=== PATIENT | female | born 1960 | race Caucasian/White ===

== ENCOUNTER 2022-11-11 11:18 | Inpatient (IN) | payer MEDICAID, SELFPAY ==
--- NOTE | 2022-11-11 11:19 | W.ED.PSYCHS ---
HPI - Psych General: Chief Complaint: Psychiatric Symptoms Stated Complaint: 96 hour hold Time Seen by Provider: 11/11/22 11:19 History of Present Illness: Ms. Heart is a 62-year-old lady with reported history of PTSD and depression not on medications presenting to the emergency department for psychiatric evaluation. She is under a court ordered 96-hour hold out of [facility]. The patient reports being fairly recent to the area with history of living in [facility] where she was hospitalized in the past for depression. She is not on psychiatric medications. Apparently she has had neighbors called the police on her multiple times that she has been yelling in her house and reports that she feels demonic spirits which she prays against. She does not feel that this is out of the ordinary in any way. Otherwise denies changes in health. No other specific changes in health, exacerbating, or alleviating factors identified. History of same: Yes Context: not taking psychiatric medications Review of Systems General: Reports: 10 or more systems reviewed and unremarkable except in HPI and below PFSH ED PFSH: Medical History (Updated 11/18/22 @ 00:00 by VINCENZO Chauhan) Depression Psychiatric symptoms PTSD (post-traumatic stress disorder) Thyroid disorder Surgical History (Updated 11/11/22 @ 11:37 by Mir Carreno MD) No significant past surgical history Physical Exam Const: COMMON NORMALS: alert GENERAL APPEARANCE: cooperative and well developed HENMT: COMMON NORMALS: normocephalic and atraumatic HEAD & SCALP: normocephalic and atraumatic Eye: COMMON NORMALS: conjunctivae normal CONJUNCTIVA: Yes conjunctivae normal SCLERA: sclerae normal Neck/C-Spine: COMMON NORMALS: supple GENERAL: Yes trachea midline Resp: COMMON NORMALS: clear to auscultation bilaterally EFFORT & INSPECTION: Yes able to speak in complete sentences AUSCULTATION: clear to auscultation bilaterally Cardio: COMMON NORMALS: regular rate and regular rhythm RATE: regular rate RHYTHM: regular rhythm GI: COMMON NORMALS: Soft to palpation PALPATION: Yes Soft to palpation and No Tenderness to palpation present (GI) PERCUSSION: normal to percussion Extremity: GENERAL: Yes normal exam except as noted and No edema Neuro: COMMON NORMALS: moves all extremities SENSORIUM/ORIENTATION: Yes alert and No Orientation impaired Psych: MOOD & AFFECT: Yes Labile affect present INSIGHT: Fair insight present (Psych) JUDGEMENT: Poor judgement present (Psych) Course Vital Signs: Vital signs: Vital Signs Temperature 97.8 F 11/17/22 12:09 Pulse Rate 85 11/17/22 12:09 Respiratory Rate 16 11/17/22 12:09 Blood Pressure 116/69 11/17/22 12:09 Pulse Oximetry 98 11/17/22 12:09 Oxygen Delivery Me thod 11/17/22 06:00 MDM - Psych Medical Decision Making 62-year-old lady presenting to the emergency department for mental health evaluation placed on 96-hour hold prior to arrival. Patient denies any concerns. Labs with perhaps mild evidence of dehydration, patient can adequately orally rehydrate, salicylate level mildly elevated and repeat timed. No reported history of suicide attempt or salicylate ingestion. Based on ED evaluation at this point there is no obvious condition that would preclude the patient from inpatient management psychiatric concerns/symptoms. Most likely etiology of patient's symptoms is unclear, likely related to underlying psychiatric disorder. Discussed with psychiatry service who was agreeable to admit patient. Medical Records I reviewed the patient's medical records. Lab Data I reviewed the patient's lab results. 11/11/22 12:01 11/11/22 12:01 Radiology Impressions Shoulder X-Ray 11/13/22 08:27 Impression: Negative right shoulder. Laboratory Results WBC 11.2 10^3/uL (4.0-10.0) H 11/11/22 12:01 RBC 4.54 10^6/uL (4.1-5.3) 11/11/22 12:01 Hgb 12.6 g/dL (11.5-15.3) 11/11/22 12:01 Hct 40.7 % (37.0-47.0) 11/11/22 12:01 MCV 89.6 fl (81-99) 11/11/22 12:01 MCH 27.8 pg (28.0-34.0) L 11/11/22 12:01 MCHC 31.0 g/dL (30.0-36.0) 11/11/22 12:01 RDW 17.7 % (12.1-15.1) H 11/11/22 12:01 Plt Count 367 10^3/cmm (130-400) 11/11/22 12:01 MPV 9.5 fL (7.4-10.4) 11/11/22 12:01 Neut % (Auto) 63.0 % 11/11/22 12:01 Lymph % (Auto) 29.1 % 11/11/22 12:01 Boone % (Auto) 5.3 % 11/11/22 12:01 Eos % (Auto) 0.9 % 11/11/22 12:01 Baso % (Auto) 1.0 % 11/11/22 12:01 Neut # (Auto) 7.08 10^3/uL (1.8-7.7) 11/11/22 12:01 Lymph # (Auto) 3.3 10^3/uL (0.8-4.8) 11/11/22 12:01 Boone # (Auto) 0.6 10^3/uL (0.2-0.9) 11/11/22 12:01 Eos # (Auto) 0.1 10^3/uL (0.0-0.8) 11/11/22 12:01 Baso # (Auto) 0.1 10^3/uL (0.0-0.1) 11/11/22 12:01 Nucleated RBC % (auto) 0 % 11/11/22 12: Nucleated RBCs # 0.0 /100WBC 11/11/22 12:01 Sodium 143 mmol/L (136-145) 11/11/22 12:01 Potassium 4.3 mmol/L (3.5-5.1) 11/11/22 12:01 Chloride 106 mmol/L (98-107) 11/11/22 12:01 Carbon Dioxide 19 mmol/L (22-29) L 11/11/22 12:01 Anion Gap 22.3 (5-19) H 11/11/22 12:01 BUN 26 mg/dL (8-23) H 11/11/22 12:01 Creatinine 0.8 mg/dL (0.5-0.9) 11/11/22 12:01 GFR Calculation 73.2 mL/min (90-130) L 11/11/22 12:01 Glucose 121 mg/dL (65-115) H 11/11/22 12:01 Calculated Osmolality 302 mOsm/kg (285-295) H 11/11/22 12:01 Calcium 9.4 mg/dL (8.5-10.5) 11/11/22 12:01 Total Bilirubin 0.2 mg/dL (0.15-1.2) 11/11/22 12:01 AST 18 U/L (0-32) 11/11/22 12:01 ALT 15 U/L (0-33) 11/11/22 12:01 Alkaline Phosphatase 63 U/L (35-105) 11/11/22 12:01 Total Protein 7.4 g/dL (6.6-8.7) 11/11/22 12:01 Albumin 4.7 g/dL (3.5-5.2) 11/11/22 12:01 Globulin 2.7 g/dL (1.3-4.6) 11/11/22 12:01 TSH 1.44 uIU/mL (0.27-4.20) 11/11/22 12:01 Urine Color Light yellow (Yellow) 11/11/22 12:10 Urine Appearance Hazy (CLEAR) A 11/11/22 12:10 Urine pH 5 (5-7) 11/11/22 12:10 Ur Specific Goodrich 1.015 (1.005-1.030) 11/11/22 12:10 Urine Protein Neg (Negative) 11/11/22 12:10 Urine Glucose (UA) Norm (Normal) 11/11/22 12:10 Urine Ketones Negative (Negative) 11/11/22 12:10 Urine Blood Neg (Negative) 11/11/22 12:10 Urine Nitrate Negative (Negative) 11/11/22 12:10 Urine Bilirubin Neg (Negative) 11/11/22 12:10 Urine Urobilinogen Neg mg/dL (Negative) 11/11/22 12:10 Ur Leukocyte Esterase Negative (Negative) 11/11/22 12:10 Urine RBC Rare /hpf (0-2) 11/11/22 12:10 Urine WBC None /hpf (0-5) 11/11/22 12:10 Ur Squamous Epith Cells Rare /hpf (0-5) 11/11/22 12:10 Amorphous Sediment Not Reportable 11/11/22 12:10 Urine Bacteria None /hpf (NONE) 11/11/22 12:10 Salicylates 34.3 mg/dL (3-10) H 11/11/22 12:01 Urine Opiates Screen Negative ng/mL (Negative) 11/11/22 12:10 Acetaminophen < 5.0 ug/mL (10-30) L 11/11/22 12:01 Ur Barbiturates Screen Negative ng/mL (Negative) 11/11/22 12:10 Ur Phencyclidine Scrn Negative ng/mL (Negative) 11/11/22 12:10 Ur Amphetamines Screen Negative ng/mL (Negative) 11/11/22 12:10 U Benzodiazepines Scrn Negative ng/mL (Negative) 11/11/22 12:10 Urine Cocaine Screen Negative ng/mL (Negative) 11/11/22 12:10 U Marijuana (THC) Screen Negative ng/mL (Negative) 11/11/22 12:10 Ethyl Alcohol < 10 mg/dL (0-10) 11/11/22 12:01 Discharge Plan Discharge Patient Disposition: Admitted As Inpatient Admit Provider: Kilo Villarreal Clinical Impression: Psychiatric symptoms, Delusions Condition: Stable Discharge Diet: Usual diet Discharge Activity: Resume usual activity Coding Level of Care Code ED Cloth Examiner Hand for Bakari Rm
[2022-11-11 11:24] VITALS: PULSE 98; RESP 18; TEMP 36.8; O2SAT 98
--- NOTE | 2022-11-11 11:30 | PC.NURSE ---
@1132 96 hour hold rights reviewed with patient and copy left and bedside. No further questions by patient, and patient verbalized understanding.
--- NOTE | 2022-11-11 11:42 | PC.NURSE ---
ATTEMPTED TO DEESCALATE PT AND REMOVE PERSONAL BELONGINGS FROM ROOM. PT REFUSED STATING, I HAVE ARTHRITIS I NEED THIS JACKET TO COVER IT UP . I OFFERED PT BLANKETS PT REFUSED. PT OFFERED TIME TO EXPRESS HERSELF. PT CONTINUES TO SPEAK AT A FAST RATE.
--- NOTE | 2022-11-11 11:48 | PC.NURSE ---
CONTINUING TO ATTEMPT TO DEESCALATE AND OBTAIN PT BELONGINGS. PT IS ESCALATING INCREASING HER SPEECH RATE AND TONE. STAFF PRESENT INCREASED.
[2022-11-11] MEDS: LORazepam 2 mg/mL INJ 1 mL 1 MG IM (11:54)
[2022-11-11] MEDS: haloperidol inj 5 mg/mL INJ 1 mL 2 MG IM (11:54)
--- NOTE | 2022-11-11 11:54 | PC.NURSE ---
PT IN MANUAL HOLD FOR REMOVAL OF PERSONAL ITEMS AND FOR IM INJECTIONS DT PT CONTINUING TO NOT FOLLOW VERBAL COMMANDS. ASSISTED BY TECH SECURITY AND RN. VERBAL ORDER OBTAINED PRIOR TO MANUAL HOLD BY DR. JEWELL.
[2022-11-11 12:20] LABS: Basophils # 0.1 10^3/uL (0.0-0.1); Eosinophils # 0.1 10^3/uL (0.0-0.8); Eosinophils % 0.9 %; Hematocrit 40.7 % (37.0-47.0); Hemoglobin 12.6 g/dL (11.5-15.3); Lymphocytes # 3.3 10^3/uL (0.8-4.8); Lymphocytes % 29.1 %; Mean Corpuscular Hemoglobin 27.8 pg (28.0-34.0); Mean Corpuscular Volume 89.6 fl (81-99); Mean Platelet Volume 9.5 fL (7.4-10.4); Monocytes # 0.6 10^3/uL (0.2-0.9); Monocytes % 5.3 %; Neutrophils # 7.08 10^3/uL (1.8-7.7); Nucleated Red Blood Cells % 0 %; Platelet Count 367 10^3/cmm (130-400); Red Blood Count 4.54 10^6/uL (4.1-5.3); Red Cell Distribution Width 17.7 % (12.1-15.1); White Blood Count 11.2 10^3/uL (4.0-10.0)
[2022-11-11 12:44] LABS: Add Urine Microscopic? YES; Bilirubin Urine Neg (Negative); Blood Urine Neg (Negative); Glucose Urine UA Norm (Normal); Ketones Urine Negative (Negative); Leukocyte Esterase Urine Negative (Negative); Nitrate Urine Negative (Negative); Protein Urine Neg (Negative); Specific Gravity, Urine 1.015 (1.005-1.030); Urine Appearance Hazy (CLEAR); Urine Color Light yellow (Yellow); Urobilinogen Urine Neg (Negative); pH Urine 5 (5-7)
[2022-11-11 12:49] LABS: Alanine Aminotransferase 15 U/L (0-33); Albumin Level 4.7 g/dL (3.5-5.2); Alkaline Phosphatase 63 U/L (35-105); Anion Gap 22.3 (5-19); Aspartate Amino Transferase 18 U/L (0-32); Blood Urea Nitrogen 26 mg/dL (8-23); Calcium 9.4 mg/dL (8.5-10.5); Carbon Dioxide 19 mmol/L (22-29); Chloride 106 mmol/L (98-107); Globulin 2.7 g/dL (1.3-4.6); Glomerular Filtration Rate 73.2 mL/min (90-130); Glucose 121 mg/dL (65-115); Osmolality Calculated 302 mOsm/kg (285-295); Potassium 4.3 mmol/L (3.5-5.1); Salicylate 34.3 mg/dL (3-10); Sodium 143 mmol/L (136-145); Thyroid Stimulating Hormone 1.44 uIU/mL (0.27-4.20); Total Bilirubin 0.2 mg/dL (0.15-1.2); Total Protein 7.4 g/dL (6.6-8.7)
[2022-11-11 12:50] LABS: Add Urine Culture? No; RBC Urine RARE /hpf (0-2); Squamous Epithelial Cell Urine RARE /hpf (0-5)
[2022-11-11 12:52] LABS: Amphetamines Screen Urine Negative (Negative); Barbiturates Screen Urine Negative (Negative); Benzodiazepines Screen Urine Negative (Negative); Cocaine Screen Urine Negative (Negative); Opiate Screen Urine Negative (Negative); PCP Screen Urine Negative (Negative); THC Screen Urine Negative (Negative)
[2022-11-11 12:52] LABS: Acetaminophen < 5.0 ug/mL (10-30); Alcohol Level < 10 mg/dL (0-10)
--- NOTE | 2022-11-11 13:09 | PC.NURSE ---
PT PROVIDED WITH FOOD AND COFFEE PER PT REQUEST AND DR. FANTA ROTH
--- NOTE | 2022-11-11 14:43 | PC.NURSE ---
report given to lupe millard.
[2022-11-11 15:38] VITALS: BP 146/76; PULSE 92; RESP 20; TEMP 36.8; O2SAT 97
[2022-11-11 17:15] LABS: Salicylate 24.2 mg/dL (3-10)
[2022-11-11] MEDS: ibuprofen 600 mg Tablet PO (20:22)
[2022-11-11 20:43] VITALS: BP 149/73; PULSE 95; RESP 17; TEMP 36.8; O2SAT 96
[2022-11-12] MEDS: ibuprofen 600 mg Tablet PO ×3 (05:03→21:23)
[2022-11-12 06:00] VITALS: BP 174/92; PULSE 86; RESP 18; TEMP 36.6; O2SAT 97
[2022-11-12] MEDS: nicotine 4 mg lozenge MUCOUS MEM ×4 (06:39→19:35)
[2022-11-12] MEDS: aspirin 81 mg EC Tablet PO (09:57)
[2022-11-12] MEDS: magnesium hydroxide 30 mL UDC PO (09:58)
--- NOTE | 2022-11-12 10:36 | PC.NURSE ---
Pt was encouraged to please keep her ID bracelet on. Pt cussed at staff and then stomped off. Nursing staff will encourage later.
[2022-11-12 14:00] VITALS: RESP 18
--- NOTE | 2022-11-12 15:48 | PC.NURSE ---
Pt became upset with nursing staff, about topical pain cream that the doctor was to order. Pt stomped off and slammed her room door and also the bathroom door inside her room, cussing at staff. Staff gave pt some time to cool off and then politely educated the pt about keeping the door cracked at all times.
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
[2022-11-12 20:31] VITALS: BP 170/83; PULSE 84; RESP 17; TEMP 36.9; O2SAT 95
[2022-11-12] MEDS: hyDROXYzine 25 mg Capsule 50 MG PO (21:23)
[2022-11-13] MEDS: ibuprofen 600 mg Tablet PO ×4 (03:47→21:58)
[2022-11-13 06:00] VITALS: BP 162/88; PULSE 75; RESP 16; TEMP 36.6; O2SAT 98
--- NOTE | 2022-11-13 08:27 | XR_ITS ---
WS: [id number] Right shoulder, 3 views, 11/13/2022 Clinical Data: Right shoulder pain Comparison: None. Findings: No fractures or dislocations are seen. The AC joint is normal. The adjacent right clavicle, right sca pula and ribs are normal. The soft tissues are unremarkable. XR/XR shoulder RT min 2V* [id number] Impression: Negative right shoulder.
[2022-11-13] MEDS: venlafaxine ER (24HR) 75 mg Capsule PO (09:37)
[2022-11-13] MEDS: nicotine 4 mg lozenge MUCOUS MEM ×3 (09:37→21:58)
[2022-11-13 14:00] VITALS: BP 171/98; PULSE 83; RESP 20; TEMP 36.8; O2SAT 96
--- NOTE | 2022-11-13 15:36 | W.PM.NPUPNS ---
Subjective NPU Subjective: Patient is a 62-year-old white female with a history of schizoaffective disorder admitted with increased bizarre behavior at her recent living situation with an extended history of psychiatric issues. The patient had reported having been off of her psychotropic medicines for 3 years and reported that she was in a significant amount of pain in her shoulder and stated that she needed further help with her pain at this time. The patient had an x-ray completed of her right shoulder today. Patient denied any suicidal thoughts at this time. She had minimized any of the bizarre behavior that was reported by the landlord of her home living situation including apparently throwing a appliance out the window and complaining of being in a hi with Satan. Mental Status Exam MSE Comments: The patient is a short white female who appeared her stated age she appeared mildly agitated today and defensive. There is no evidence of psychomotor retardation. Her speech was somewhat loud but normal in regards to rate and prosody. There was no evidence of any abnormal involuntary motor movements tics or tremors appreciated. Her mood was described as upset. Her affect was irritable and mood-congruent. She did appear guarded and at times paranoid. She did not appear to be responding to internal stimuli. She had reported distrust of others and denied any of the problems that landed her in here. She minimized any suicidal or homicidal ideation. Her insight appeared impaired. Her judgment was poor. Her impulse control appeared limited at this time. Her recent and remote memory appeared grossly intact. Vitals/I&O/Wt Last Vital Signs Temp 97.9 F 11/13/22 06:00 Pulse 75 11/13/22 06:00 Resp 16 11/13/22 06:00 BP 162/88 11/13/22 06:00 Pulse Ox 98 11/13/22 06:00 O2 Del Method 11/13/22 06:00 Data NPU 11/11/22 12:01 11/11/22 12:01 A&P Assessment and plan (1) Major depressive disorder, recurrent: (2) PTSD (post-traumatic stress disorder): (3) Delusions: Plan Rossana is a 62-year-old white female with a reported history of PTSD and schizoaffective disorder: depressed mood admitted while reporting being in a hi with demons leading to involuntary hospitalization at [facility] with recent noncompliance with an antipsychotic and antidepressant for reportedly several years. Patient will continue to require acute inpatient hospitalization and close evaluation. #1. Initiate individual group and milieu therapy. #2. Therapeutic observation 15-minute checks on the unit #3. Continue Effexor 75 mg extended release once a day to target depression, add Invega 3mg to target psychosis today. Involuntary Hold Information 96 Hour Hold: 96 Hour Involuntary Admission: Yes 96 Hour Hold Ending Date: 11/17/22 96 Hour Hold Ending Time: 11:18 Attestations NPU Medical Necessity Statement*: Inpatient hospitalization is medically necessary and the clinically appropriate intervention at this time. We will monitor medications and make changes as indicated. Patient will be in the hospital for over 2 midnights. Her likely length of stay is 3 to 6 days. Coding Level of Care Code Acute Code for g Fwd Diagnoses Major depressive disorder, recurrent F33.9 PTSD (post-traumatic stress disorder) F43.10 Delusions F22
--- NOTE | 2022-11-13 15:45 | PC.NURSE ---
Blood pressure 171/98; denies n/v,vertigo and dizziness. C/O right shoulder pain; rated 7/10; IBU 600mg given as ordered. MD notified; no new order received.
[2022-11-13 21:25] VITALS: BP 151/73; PULSE 85; RESP 20; TEMP 36.5; O2SAT 97
[2022-11-13] MEDS: magnesium hydroxide 30 mL UDC PO (21:58)
[2022-11-14 06:00] VITALS: BP 181/84; PULSE 85; RESP 17; TEMP 36.8; O2SAT 96
[2022-11-14] MEDS: ibuprofen 600 mg Tablet PO ×2 (06:16→12:44)
[2022-11-14] MEDS: nicotine 4 mg lozenge MUCOUS MEM ×3 (06:16→13:22)
[2022-11-14] MEDS: venlafaxine ER (24HR) 75 mg Capsule PO (08:29)
--- NOTE | 2022-11-14 13:10 | W.PM.NPUPNS ---
Subjective NPU Subjective: Patient is a 62-year-old white female with a history of schizoaffective disorder admitted with increased bizarre behavior at her recent living situation with an extended history of psychiatric issues. The patient had reported continued special relationship with God and stated that she was a spiritual person. She had a door in her room with various words including [employer] and stated that she was a believer in saving herself. She reported no side effects from her Invega at this time. She reported no suicidal thoughts. She had reported that she had been feeling somewhat better with the initiation of her Effexor. She reported no feelings of hopelessness. She reported that she probably needed to follow-up with a psychiatrist again as it had been several years without having psychiatric despite having a chronic mental illness for greater than 30 years. She continued to report that she had done nothing wrong in her living situation and denied having any disruptive behavior and her home that had led to her eviction. She had reported significant right shoulder pain with an inability to rotate her shoulder with particular pain on motion. She had requested pain medication to manage it today as she stated that the ibuprofen had not been helpful. She had reported previously having pain relief for using Ryegate. She has no history currently of substance abuse. Mental Status Exam MSE Comments: The patient is a short white female who appeared her stated age she appeared mildly agitated and in some physical pain. There is no evidence of psychomotor retardation. Her speech was normal in volume, rate and prosody. There was no evidence of any abnormal involuntary motor movements tics or tremors appreciated. Her mood was described as better. Her affect remained irritable and mood incongruent. She did appear guarded and at times paranoid. She did not appear to be responding to internal stimuli. She had reported distrust of others and denied any of the problems that led to admission here. There was an element of hyperreligiosity noted. She minimized any suicidal or homicidal ideation. Her insight appeared impaired. Her judgment was poor. Her impulse control appeared limited at this time. Her recent and remote memory appeared grossly intact. Vitals/I&O/Wt Last Vital Signs Temp 98.3 F 11/14/22 06:00 Pulse 85 11/14/22 06:00 Resp 17 11/14/22 06:00 BP 181/84 11/14/22 06:00 Pulse Ox 96 11/14/22 06:00 O2 Del Method 11/14/22 06:00 11/13/22 11/14/22 11/14/22 22:59 06:59 14:59 Intake Total 500 / 500 Balance 500 / 500 Data NPU 11/11/22 12:01 11/11/22 12:01 A&P Assessment and plan (1) Major depressive disorder, recurrent: (2) PTSD (post-traumatic stress disorder): (3) Delusions: Plan Rossana is a 62-year-old white female with a reported history of PTSD and schizoaffective disorder: depressed mood admitted while reporting being in a hi with [employer] leading to involuntary hospitalization at [facility] with recent noncompliance with an antipsychotic and antidepressant for reportedly several years. Patient will continue to require acute inpatient hospitalization and close evaluation. #1. Initiate individual group and milieu therapy. #2. Therapeutic observation 15-minute checks on the unit #3. Increase Effexor 150 mg extended release once a day to target depression, increase Invega 6mg to target psychosis tommorow. Involuntary Hold Information 96 Hour Hold: 96 Hour Involuntary Admission: Yes 96 Hour Hold Ending Date: 11/17/22 96 Hour Hold Ending Time: 11:18 Attestations NPU Medical Necessity Statement*: Inpatient hospitalization is medically necessary and the clinically appropriate intervention at this time. We will monitor medications and make changes as indicated. Patient will be in the hospital for over 2 midnights. Her likely length of stay is 3 to 6 days. Coding Level of Care Code Acute Code for Chg Fwd Diagnoses Major depressive disorder, recurrent F33.9 PTSD (post-traumatic stress disorder) F43.10 Delusions F22
[2022-11-14 14:00] VITALS: BP 199/105; PULSE 71; RESP 18; TEMP 36.4; O2SAT 99
[2022-11-14] MEDS: CELEcoxib 100 mg Capsule PO (17:11)
[2022-11-14 17:32] VITALS: BP 194/86
--- NOTE | 2022-11-14 17:37 | PC.NURSE ---
Patient BP- 199/105 earlier; denies n/v,dizziness and vertigo. states she has a slight h/a. Celebrex given as ordered. BP-194/86. Dr. Villarreal made aware. Received order for one time dose of Clonidine 0.2mg by mouth npw.
[2022-11-14 17:53] VITALS: BP 194/86
[2022-11-14] MEDS: cloNIDine 0.1 mg Tablet 0.2 MG PO (17:53)
--- NOTE | 2022-11-14 18:36 | PC.NURSE ---
Patient in room resting. Denies dizziness, n/v and vertigo. No c/o headache. BP- 131/68 at this time. notified.
[2022-11-14 18:37] VITALS: BP 131/68
[2022-11-14 20:52] VITALS: BP 106/64; PULSE 73; RESP 16; TEMP 36.5; O2SAT 95
[2022-11-14] MEDS: cyclobenzaprine 10 mg Tablet 5 MG PO (22:35)
[2022-11-14] MEDS: TRAMadol 50 mg Tablet PO (22:35)
[2022-11-15] MEDS: nicotine 4 mg lozenge MUCOUS MEM ×3 (03:28→13:35)
--- NOTE | 2022-11-15 03:42 | PC.NURSE ---
During eveining nursing assessment pt reported pain 06/06, unable to take tylenol, MD notified, would consult with hospitalist. MD returned call after consult and orders entered for Tramadol 50mg Q6 PRN and Flexeril 5mg PRN. Pt received medications 2230, rested for few hours and reported to RN she had pain relief 11/06. Pt was thankful and had a much better attitude.
[2022-11-15] MEDS: TRAMadol 50 mg Tablet PO ×4 (05:10→23:31)
[2022-11-15 06:00] VITALS: BP 120/73; PULSE 91; RESP 16; TEMP 37.4; O2SAT 96
[2022-11-15] MEDS: venlafaxine ER (24HR) 75 mg Capsule PO (09:52)
[2022-11-15] MEDS: paliperidone ER 3 mg Tablet 6 MG PO (09:52)
[2022-11-15] MEDS: CELEcoxib 100 mg Capsule PO ×2 (09:52→17:00)
[2022-11-15] MEDS: magnesium hydroxide 30 mL UDC PO (11:03)
[2022-11-15] MEDS: cyclobenzaprine 10 mg Tablet 5 MG PO ×3 (11:03→23:32)
[2022-11-15 14:00] VITALS: BP 116/68; PULSE 89; RESP 17; TEMP 37.1; O2SAT 95
--- NOTE | 2022-11-15 14:23 | P.NPUPN_ITS ---
Subjective NPU Subjective: Patient is a 62-year-old white female with a history of schizoaffective disorder admitted with increased bizarre behavior at her recent living situation with an extended history of psychiatric issues. The patient had reported that she was able to sleep better. She had continued to appear iso lative and paranoid on the unit. She states that she feels like other people do not trust her and somehow new information about her. She had minimized any problems in her home that led to her eviction from her apartment. She was compliant with her medication and reported no side effects from the increase in Invega. The patient reported that the tramadol has been helpful for her shoulder pain. She had reported having no bowel movements for the last 5 days with chronic constipation. Mental Status Exam MSE Comments: The patient is a short white female who appeared her stated age she appeared mildly agitated and in some physical pain. There is no evidence of psychomotor retardation. Her speech was normal in volume, rate and prosody. There was no evidence of any abnormal involuntary motor movements tics or tremors appreciated. Her mood was described as alright. Her affect remained blunted. She did appear guarded and at times paranoid. She did not appear to be responding to internal stimuli. She had reported distrust of others and denied any of the problems that led to admission here. There was evidence of delusions of persecution. She minimized any suicidal or homicidal ideation. Her insight appeared impaired. Her judgment was poor. Her impulse control appeared limited at this time. Her recent and remote memory appeared grossly intact. Vitals/I&O/Wt Last Vital Signs Temp 99.3 F 11/15/22 06:00 Pulse 91 11/15/22 06:00 Resp 16 11/15/22 06:00 BP 120/73 11/15/22 06:00 Pulse Ox 96 11/15/22 06:00 O2 Del Method 11/14/22 14:00 11/14/22 11/15/22 11/15/22 22:59 06:59 14:59 Intake Total 500 / 500 Balance 500 / 500 Data NPU 11/11/22 12:01 11/11/22 12:01 A&P Assessment and plan (1) Major depressive disorder, recurrent: (2) PTSD (post-traumatic stress disorder): (3) Delusions: Plan Rossana is a 62-year-old white female with a reported history of PTSD and schizoaffective disorder: depressed mood admitted while reporting being in a ba ttle with demons leading to involuntary hospitalization at [facility] with recent noncompliance with an antipsychotic and antidepressant for reportedly several years. Patient will continue to require acute inpatient hospitalization and close evaluation. #1. Initiate individual group and milieu therapy. #2. Therapeutic observation 15-minute checks on the unit #3. Continue Effexor 150 mg extended release once a day to target depression, Continue Invega 6mg daily to target psychosis. 4. Patient started on HCTZ/Lisinopril for HTN, patient had elevated BP yesterday 190/90 and needs to be restarted back on antihypertensive regimen previously prescribed. Involuntary Hold Information 96 Hour Hold: 96 Hour Involuntary Admission: Yes 96 Hour Hold Ending Date: 11/17/22 96 Hour Hold Ending Time: 11:18 Attestations NPU Medical Necessity Statement*: Inpatient hospitalization is medically necessary and the clinically appropriate intervention at this time. We will monitor medications and make changes as indicated. Patient will be in the hospital for over 2 midnights. Her likely length of stay is 3 to 6 days. Coding Level of Care Code Acute Code for Chg Fwd Diagnoses Major depressive disorder, recurrent F33.9 PTSD (post-traumatic stress disorder) F43.10 Delusions F22
[2022-11-15 21:26] VITALS: BP 110/68; PULSE 85; RESP 18; TEMP 36.4; O2SAT 95
[2022-11-16 06:00] VITALS: BP 151/78; PULSE 78; RESP 16; TEMP 36.4; O2SAT 97
[2022-11-16] MEDS: TRAMadol 50 mg Tablet PO ×3 (06:03→21:04)
[2022-11-16] MEDS: cyclobenzaprine 10 mg Tablet 5 MG PO ×3 (06:04→21:05)
[2022-11-16] MEDS: venlafaxine ER (24HR) 75 mg Capsule PO (08:06)
[2022-11-16] MEDS: CELEcoxib 100 mg Capsule PO ×2 (08:06→17:05)
[2022-11-16] MEDS: paliperidone ER 3 mg Tablet 6 MG PO (08:06)
[2022-11-16] MEDS: magnesium hydroxide 30 mL UDC PO (09:09)
--- NOTE | 2022-11-16 09:11 | PC.NURSE ---
PRN MILK OF MAGNESIA 30 ML GIVEN PO PER PT C/O CONSTIPATION
[2022-11-16] MEDS: nicotine 4 mg lozenge MUCOUS MEM (10:39)
[2022-11-16 14:00] VITALS: BP 128/70; PULSE 94; RESP 18; TEMP 36.7; O2SAT 96
--- NOTE | 2022-11-16 17:21 | P.NPUPN_ITS ---
Subjective NPU Subjective: Patient is a 62-year-old white female with a history of schizoaffective disorder admitted with increased bizarre behavior at her recent living situation with an extended history of psychiatric issues. The patient had reported that her mood had been better. She had not been as irritable and r eported that she was feeling less angry. She denied hearing any voices at this time. She had been isolative but was able to leave the room and was more friendly with her peers on the unit. She had reported improved pain relief with the tramadol. She had reported improved sleep. She stated that she understood that she had been evicted and states that she was working on finding a new place. She continue to report chronic constipation. Mental Status Exam MSE Comments: The patient is a short white female who appeared her stated age and cooperative on interview today. There is no evidence of psychomotor retardation. Her speech was normal in volume, rate and prosody. There was no evidence of any abnormal involuntary motor movements tics or tremors appreciated. Her mood was described as good. Her affect remained flat. There was less evidence of paranoia. She did not appear to be responding to internal stimuli. There was no overt delusions noted today. She minimized any suicidal or homicidal ideation. Her insight appeared to be improving.. Her judgment was guarded. Her impulse control appeared limited at this time. Her recent and remote memory appeared grossly intact. Vitals/I&O/Wt Last Vital Signs Temp 98.0 F 11/16/22 14:00 Pulse 94 11/16/22 14:00 Resp 18 11/16/22 14:00 BP 128/70 11/16/22 14:00 Pulse Ox 96 11/16/22 14:00 O2 Del Method 11/16/22 14:00 Data NPU 11/11/22 12:01 11/11/22 12:01 A&P Assessment and plan (1) Major depressive disorder, recurrent: (2) PTSD (post-traumatic stress disorder): (3) Delusions: Plan Rossana is a 62-year-old white female with a reported history of PTSD and schizoaffective disorder: depressed mood admitted while reporting being in a hi with demons leading to involuntary hospitalization at [facility] with recent noncompliance with an antipsychotic and antidepressant for reportedly several years. Patient will continue to require acute inpatient hospitalization and close evaluation. #1. Initiate individual group and milieu therapy. #2. Therapeutic observation 15-minute checks on the unit #3. Continue Effexor 150 mg extended release once a day to target depression, Continue Invega 6mg daily to target psychosis. 4. Patient started on HCTZ/Lisinopril for HTN, patient had elevated BP yesterday 190/90 and needs to be restarted back on antihypertensive regimen previously prescribed. Involuntary Hold Information 96 Hour Hold: 96 Hour Involuntary Admission: Yes 96 Hour Hold Ending Date: 11/17/22 96 Hour Hold Ending Time: 11:18 Attestations NPU Medical Necessity Statement*: Inpatient hospitalization is medically necessary and the clinically appropriate intervention at this time. We will monitor medications and make changes as indicated. Patient will be in the hospital for over 2 midnights. Her likely length of stay is 1-2 days. Coding Level of Care Code Acute Code for g Fwd Diagnoses Major depressive disorder, recurrent F33.9 PTSD (post-traumatic stress disorder) F43.10 Delusions F22
[2022-11-16 20:08] VITALS: BP 159/78; PULSE 76; RESP 16; TEMP 36.7; O2SAT 95
--- NOTE | 2022-11-16 21:10 | PC.NURSE ---
PRN TRAMADOL AND FLEXERIL WAS GIVEN TO PT FOR PAIN AND MUSCLE SPASMS PER PT REQUEST.
[2022-11-17] MEDS: TRAMadol 50 mg Tablet PO ×2 (02:54→10:17)
[2022-11-17 06:00] VITALS: BP 116/69; PULSE 85; RESP 16; TEMP 36.6; O2SAT 98
[2022-11-17] MEDS: venlafaxine ER (24HR) 150 mg Capsule PO (08:12)
[2022-11-17] MEDS: paliperidone ER 3 mg Tablet 6 MG PO (08:12)
[2022-11-17] MEDS: CELEcoxib 100 mg Capsule PO (08:12)
[2022-11-17] MEDS: nicotine 4 mg lozenge MUCOUS MEM (08:53)
[2022-11-17] MEDS: cyclobenzaprine 10 mg Tablet 5 MG PO (10:17)
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
[2022-11-17 12:09] VITALS: BP 116/69; PULSE 85; RESP 16; TEMP 36.6; O2SAT 98
== END 2022-11-17 14:30 | disposition home or self-care (01) | DRG 885 ==
LOC: ER 13:17 → NP 13:24
PROVIDERS: Admitting Provider Psychiatry & Neurology Psychiatry; Emergency Provider Emergency Medicine; Visit Provider Psychiatry & Neurology Psychiatry
DX: F20.9 Schizophrenia, unspecified (principal); F33.9 Major depressive disorder, recurrent, unspecified; F43.10 Post-traumatic stress disorder, unspecified; Z91.14 Patient's other noncompliance with medication regimen; M25.511 Pain in right shoulder; Z88.0 Allergy status to penicillin
CPT/HCPCS: 36415; 73030; 80053; 80306; 80307; 81001; 84443; 85025; 96372; 97150; 97165; 99238; 99285; J1630; J2060

== ENCOUNTER 2023-01-18 17:29 | Inpatient (IN) | payer MEDICAID, SELFPAY ==
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
[2023-01-18 17:33] VITALS: BP 176/126; PULSE 105; RESP 20; TEMP 36.4; O2SAT 97
--- NOTE | 2023-01-18 17:33 | PC.NURSE ---
Patient served with 96 hr rights by HS and Security. Patient continued to speak over HS when reviewing pt rights. HS attempted multiple times to explain process and her rights listed on paper copy given. Obscenities yelled at HS, and pt not willing at that moment to review education. Paper copy left with patient at bedside and instructions on if she had any questions, she may call HS or NPU RN to review process and education.
[2023-01-18] MEDS: aspirin 325 mg EC Tablet 650 MG PO (18:13)
[2023-01-18] MEDS: ziprasidone 20 mg/mL SDV IM (18:23)
--- NOTE | 2023-01-18 19:02 | PC.NURSE ---
REPORT GIVEN TO DEMARCUS LEGER ASSUMED CARE.
[2023-01-18 19:15] LABS: Basophils # 0.1 10^3/uL (0.0-0.1); Basophils % 0.7 %; Eosinophils % 0.5 %; Hematocrit 44.2 % (37.0-47.0); Hemoglobin 14.2 g/dL (11.5-15.3); Lymphocytes # 2.3 10^3/uL (0.8-4.8); Mean Corpuscular HGB Conc 32.1 g/dL (30.0-36.0); Mean Corpuscular Hemoglobin 28.1 pg (28.0-34.0); Mean Corpuscular Volume 87.4 fl (81-99); Mean Platelet Volume 9.2 fL (7.4-10.4); Monocytes # 0.6 10^3/uL (0.2-0.9); Monocytes % 8.1 %; Neutrophils # 4.52 10^3/uL (1.8-7.7); Neutrophils % 60.4 %; Nucleated Red Blood Cells % 0 %; Platelet Count 314 10^3/cmm (130-400); Red Blood Count 5.06 10^6/uL (4.1-5.3); Red Cell Distribution Width 13.9 % (12.1-15.1); White Blood Count 7.5 10^3/uL (4.0-10.0)
[2023-01-18 19:18] LABS: Amphetamines Screen Urine Negative (Negative); Barbiturates Screen Urine Negative (Negative); Benzodiazepines Screen Urine Negative (Negative); Cocaine Screen Urine Negative (Negative); Opiate Screen Urine Negative (Negative); PCP Screen Urine Negative (Negative); THC Screen Urine Negative (Negative)
--- NOTE | 2023-01-18 19:20 | PC.NURSE ---
Pt resting in bed with even chest rise. Pt does not appear to be in apparent distress.
[2023-01-18 19:42] LABS: Acetaminophen < 5.0 ug/mL (10-30); Alanine Aminotransferase 43 U/L (0-33); Albumin Level 4.7 g/dL (3.5-5.2); Alcohol Level < 10 mg/dL (0-10); Alkaline Phosphatase 76 U/L (35-105); Anion Gap 16.5 (5-19); Aspartate Amino Transferase 51 U/L (0-32); Blood Urea Nitrogen 14 mg/dL (8-23); Calcium 9.5 mg/dL (8.5-10.5); Carbon Dioxide 25 mmol/L (22-29); Chloride 92 mmol/L (98-107); Globulin 2.9 g/dL (1.3-4.6); Glucose 87 mg/dL (65-115); Osmolality Calculated 270 mOsm/kg (285-295); Potassium 3.5 mmol/L (3.5-5.1); Salicylate < 0.3 mg/dL (3-10); Sodium 130 mmol/L (136-145); Thyroid Stimulating Hormone 1.48 uIU/mL (0.27-4.20); Total Bilirubin 0.4 mg/dL (0.15-1.2); Total Protein 7.6 g/dL (6.6-8.7)
[2023-01-18 19:46] LABS: Add Urine Microscopic? NO; Charge for UA Resulting for Rev
[2023-01-18 19:52] LABS: Bilirubin Urine Neg (Negative); Blood Urine Neg (Negative); Glucose Urine UA Norm (Normal); Ketones Urine Negative (Negative); Leukocyte Esterase Urine Negative (Negative); Nitrate Urine Negative (Negative); Protein Urine Neg (Negative); Specific Gravity, Urine 1.005 (1.005-1.030); Urine Appearance Clear (CLEAR); Urine Color Light yellow (Yellow); Urobilinogen Urine Neg (Negative); pH Urine 6 (5-7)
[2023-01-18 20:35] VITALS: BP 128/90; PULSE 88; RESP 18; O2SAT 98
[2023-01-18 21:02] VITALS: BMI 18.8
[2023-01-18 21:06] VITALS: BP 123/73; PULSE 88; RESP 18; TEMP 36.4; O2SAT 99
[2023-01-18 21:28] VITALS: BP 128/90; PULSE 88; RESP 18; O2SAT 98
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
[2023-01-19 06:00] VITALS: BP 150/95; PULSE 96; RESP 16; TEMP 36.7; O2SAT 99
--- NOTE | 2023-01-19 08:58 | PC.NURSE ---
During nurses assessment pt became irritable at her 96 hour paperwork being in her room. Pt repeatedly asked about who placed it in there. pt was educated taht the other nurse brought it antonio her room because it was her copy. pt refused to keep her copy of the paperwork stating i do not need it and do not let those people from er come into my room.
[2023-01-19] MEDS: nicotine 2 mg Gum BUCCAL ×3 (09:57→21:57)
[2023-01-19] MEDS: ibuprofen 600 mg Tablet PO ×3 (10:20→23:20)
[2023-01-19 16:23] VITALS: BP 153/96
[2023-01-19 22:00] VITALS: BP 140/88; PULSE 100; RESP 18; TEMP 36.8; O2SAT 96
[2023-01-19] MEDS: cyclobenzaprine 10 mg Tablet 5 MG PO (23:20)
[2023-01-20] MEDS: nicotine 4 mg lozenge MUCOUS MEM (00:52)
[2023-01-20 06:00] VITALS: BP 165/100; PULSE 106; RESP 16; TEMP 36.6; O2SAT 98
[2023-01-20] MEDS: OLANZapine 5 mg ODT PO (08:22)
[2023-01-20] MEDS: paliperidone ER 3 mg Tablet 6 MG PO (08:23)
--- NOTE | 2023-01-20 08:46 | PC.NURSE ---
pt is currently in bedroom with meal. pt has been easily agitated. pt has become upset that another pt is walking the halls. pt keeps repeating its 0820 of course it is 0820. pt yelled at other pt stating you fucking asshole. pt educated that it is not appropriate to yell at other pt and that i am unable to force other pt to not walk. pt vebalized understanding. will continue to monitor pt.
[2023-01-20 14:00] VITALS: BP 142/77; PULSE 115; RESP 18; TEMP 36.6; O2SAT 96
--- NOTE | 2023-01-20 17:20 | P.NPUPN_ITS ---
Subjective NPU Subjective: Patient presented today continuing to be somewhat emotional and mercurial. We once again discussed her antidepressant and agreed to do a cross taper of the Paxil and Effexor XR after discussion of the risks, benefits and alternatives she understood and agreed to proceed as is documented in this note. She has a concern that the Effexor increases her blood pressure and so she is resistant to taking it. Given her blood pressure being high we agreed to make the change. We also discussed the fact that she is unlikely taking her medications at home if she is resistant to taking them here when someone is in essence forcing the decision. She has been taking the Invega she reports but again likely some of the psychosis is related to her nonadherence. We discussed a plan for the injection prior to discharge when she was resistant to reporting that this is painful. Mental Status Exam MSE Comments: This is an underweight older white female looking older than her stated age with hospital scrubs on and limited grooming and eye contact. No abnormal movements except for mild psychomotor agitation. Cooperative with exam in mild to moderate distress. Speech was increased rate and normal volume. Mood described as fine and affect energetic. Thought process linear. Thought content: Patient denies suicidal or homicidal ideations, there were no delusions reported but she continues to have paranoid and hyperreligious and some persecutory delusions, she denied auditory or visual hallucinations but describes things that she has seen and heard that do not appear to be real. Attention and concentration were intact and memory was unreliable but none were formally tested. She is alert and oriented x3. Insight and judgment are impaired and impulse control is limited versus impaired. Vitals/I&O/Wt Last Vital Signs Temp 97.8 F 01/20/23 14:00 Pulse 115 H 01/20/23 14:00 Resp 18 01/20/23 14:00 BP 142/77 01/20/23 14:00 Pulse Ox 96 01/20/23 14:00 O2 Del Method Room Air 01/20/23 06:00 Weight last 48 hrs Weight 49.895 kg Weight 49.895 kg Data NPU 01/18/23 18:20 01/18/23 18:20 A&P Assessment and plan (1) Major depressive disorder, recurrent: (2) PTSD (post-traumatic stress disorder): (3) Delusions: Plan Rossana is a 62-year-old white female with a reported history of PTSD and depression who was admitted to the inpatient unit a couple months ago with a very similar presentation of being on a 96-hour hold with paranoia and some hyperreligious thinking including issues related to devils or demons. Significant concerns about medication adherence exist. 1. Initiate individual group and milieu therapy. 2. Therapeutic observation 15-minute checks on the unit 3. Continue current medication. Except initiate Paxil 20 mg p.o. every morning and decrease Effexor XR to 75 mg p.o. every morning with a plan to discontinue the Effexor. Will desire initiation of Invega Sustenna given her lack of adherence that is likely in the outpatient setting 4 get some collateral information Involuntary Hold Information 96 Hour Hold: 96 Hour Involuntary Admission: Yes 96 Hour Hold Ending Date: 01/22/23 96 Hour Hold Ending Time: 17:50 Attestations NPU Medical Necessity Statement*: Inpatient hospitalization is medically necessary and the clinically appropriate intervention at this time. We will monitor medications and make changes as indicated. Her likely length of stay is 3-5 days. Coding Level of Care Code Acute Code for [facility] Fwd Diagnoses Major depressive disorder, recurrent F33.9 PTSD (post-traumatic stress disorder) F43.10 Delusions F22
--- NOTE | 2023-01-20 17:51 | XRR_ITS ---
PROCEDURE INFORMATION: Exam: XR Right Foot Exam date and time: 01/20/2023 5:00 PM Age: 62 years old Clinical indication: Pain; Foot; Right; Prior surgery; Additional info: Bruising and pain noted to the RT great toe. TECHNIQUE: Imaging protocol: Radiologic exam of the right foot. Views: 3 or more views. COMPARISON: No relevant prior studies available. FINDINGS: Bones/joints: Bunionectomy changes with screw fixation at the 1st metatarsal head. Osseous structures are intact. Negative for fracture. Soft tissues: Normal. XR/XR foot RT min 3V* [id number] IMPRESSION: No acute findings.
[2023-01-20] MEDS: PARoxetine 20 mg Tablet PO (18:04)
[2023-01-20 22:00] VITALS: BP 153/75; PULSE 111; RESP 18; TEMP 37; O2SAT 95
[2023-01-20] MEDS: ibuprofen 600 mg Tablet PO (23:57)
[2023-01-20] MEDS: cyclobenzaprine 10 mg Tablet 5 MG PO (23:57)
[2023-01-21 06:00] VITALS: BP 170/86; PULSE 106; RESP 16; TEMP 36.3; O2SAT 98
[2023-01-21] MEDS: ibuprofen 600 mg Tablet PO ×2 (06:37→16:32)
[2023-01-21] MEDS: PARoxetine 20 mg Tablet PO (08:16)
[2023-01-21] MEDS: paliperidone ER 3 mg Tablet 6 MG PO (08:16)
[2023-01-21] MEDS: nicotine 4 mg lozenge MUCOUS MEM ×3 (08:20→17:23)
[2023-01-21] MEDS: hyDROXYzine 25 mg Capsule 50 MG PO (10:32)
--- NOTE | 2023-01-21 10:40 | PC.NURSE ---
Patient refused effexor. Stated she was no longer supposed to be taking it. This RN notified the doctor.
[2023-01-21 14:00] VITALS: RESP 18
--- NOTE | 2023-01-21 16:56 | W.PM.NPUPNS ---
Subjective NPU Subjective: Patient presented today wanting to have something for the pain in her toe that was more than Tylenol or ibuprofen. We discussed wanting to avoid opiates for pain management. Additionally we discussed the Invega Esha and she continued to report not wanting to take the medication IM secondary to the shot hurting. We reviewed the condition of her home which she had not been forthcoming about as an outside provider contacted the hospital about the Commercial Airplane Pilot's concern about the squalor she was living in. We discussed the fact that even though she is reporting a plan to be adherent to her medication her presentation and the other evidence suggests that she is not. She denied any problems with the cross tapering of Effexor XR and Paxil. Her room was completely full of Obvious writings on the wall with hyperreligious issues. Mental Status Exam MSE Comments: This is an underweight older white female looking older than her stated age with hospital scrubs on and limited grooming and eye contact. No abnormal movements except for mild psychomotor agitation. Mostly cooperative with exam in mild to moderate distress. Speech was increased rate and normal volume. Mood described as fine and affect energetic. Thought process linear. Thought content: Patient denies suicidal or homicidal ideations, there were no delusions reported but she continues to have paranoid and hyperreligious and some persecutory delusions, she denied auditory or visual hallucinations but describes things that she has seen and heard that do not appear to be real. Attention and concentration were intact and memory was unreliable but none were formally tested. She is alert and oriented x3. Insight and judgment are impaired and impulse control is limited versus impaired. Vitals/I&O/Wt Last Vital Signs Temp 97.3 F L 01/21/23 06:00 Pulse 106 H 01/21/23 06:00 Resp 18 01/21/23 14:00 BP 170/86 01/21/23 06:00 Pulse Ox 98 01/21/23 06:00 O2 Del Method Room Air 01/21/23 06:00 Data NPU 01/18/23 18:20 01/18/23 18:20 A&P Assessment and plan (1) Major depressive disorder, recurrent: (2) PTSD (post-traumatic stress disorder): (3) Delusions: Plan Rossana is a 62-year-old white female with a reported history of PTSD and depression who was admitted to the inpatient unit a couple months ago with a very similar presentation of being on a 96-hour hold with paranoia and some hyperreligious thinking including issues related to devils or demons. Significant concerns about medication adherence exist. 1. Initiate individual group and milieu therapy. 2. Therapeutic observation 15-minute checks on the unit 3. Continue current medication. Except initiate Paxil 20 mg p.o. every morning and decrease Effexor XR to 75 mg p.o. every morning with a plan to discontinue the Effexor. Will desire initiation of Invega Sustenna given her lack of adherence that is likely in the outpatient setting 4. Provider in chair provided photos of the squalor in her home and the limited conditions within which she was living. 5. 21-day hold paperwork was submitted. Involuntary Hold Information 96 Hour Hold: 96 Hour Involuntary Admission: Yes 96 Hour Hold Ending Date: 01/22/23 96 Hour Hold Ending Time: 17:50 Attestations NPU Medical Necessity Statement*: Inpatient hospitalization is medically necessary and the clinically appropriate intervention at this time. We will monitor medications and make changes as indicated. Her likely length of stay is 6-10 days. Coding Level of Care Code Acute Code for g Fwd Diagnoses Major depressive disorder, recurrent F33.9 PTSD (post-traumatic stress disorder) F43.10 Delusions F22
[2023-01-21] MEDS: OLANZapine 5 mg ODT PO (17:20)
--- NOTE | 2023-01-21 18:05 | PC.NURSE ---
Patient was served her paperwork for her [address] to extend her time here. Patient became very agitated, stormed off to her room, slammed the door, and began screaming. This RN and other staff approached her room and despite being told she had to keep her door cracked she kept yelling, I don't have clothes on and repeatedly attempting to shut it. This RN stated I understood why she would be upset and verbalized support, but patient yelled, you don't know anything about this fucking paperwork little girl! Staff let the patient know if she would like to talk we would gladly talk to her about it. She then began throwing trash into the hallway and continued to yell. She approached the nurses' station to ask for a sandwich and became angry with a LOOSELEAF BINDER COVERER and called her a bitch. Attempted to verbally de-escalate patient, but she could not be directed. Patient stormed off to her room.
--- NOTE | 2023-01-21 18:20 | PC.NURSE ---
patient agitated, refused vital signs
[2023-01-22] MEDS: ibuprofen 600 mg Tablet PO ×2 (03:21→12:13)
[2023-01-22] MEDS: cyclobenzaprine 10 mg Tablet 5 MG PO ×2 (03:21→12:13)
[2023-01-22 06:00] VITALS: BP 171/94; PULSE 111; RESP 17; TEMP 36.4; O2SAT 97
[2023-01-22] MEDS: nicotine 4 mg lozenge MUCOUS MEM ×3 (07:31→15:23)
[2023-01-22] MEDS: PARoxetine 20 mg Tablet PO (09:19)
[2023-01-22] MEDS: paliperidone ER 3 mg Tablet 6 MG PO (09:19)
[2023-01-22 14:00] VITALS: RESP 18
--- NOTE | 2023-01-22 16:26 | PC.NURSE ---
patient refused vitals.
[2023-01-22] MEDS: OLANZapine 5 mg ODT PO (17:10)
--- NOTE | 2023-01-22 19:17 | P.NPUPN_ITS ---
Subjective NPU Subjective: Patient presented today reporting that she was wanting to leave here as soon as possible to take care of her cat. We talked about the pictures and how bad things have been and the importance of her continuing her medication and therefore getting her injection of Invega Sustenna which she is very resistant to. She talked about getting some tramadol for pain in her foot which was shown not to be broken but was bruised along with her face. She reported a willingness to take this but is unclear whether she will follow through. She had no explanation for the graffiti in her room other than needing to express thoughts about [place]. Mental Status Exam MSE Comments: This is an underweight older white female looking older than her stated age with hospital scrubs on and limited grooming and eye contact. No abnormal movements except for mild psychomotor agitation. Mostly cooperative with exam in mild to moderate distress. Speech was increased rate and normal volume. Mood described as fine and affect energetic. Thought process linear. Thought content: Patient denies suicidal or homicidal ideations, there were no delusions reported but she continues to have paranoid and hyperreligious and some persecutory delusions, she denied auditory or visual hallucinations but describes things that she has seen and heard that do not appear to be real. Attention and concentration were intact and memory was unreliable but none were formally tested. She is alert and oriented x3. Insight and judgment are impaired and impulse control is limited versus impaired. Vitals/I&O/Wt Last Vital Signs Temp 97.6 F 01/22/23 06:00 Pulse 111 H 01/22/23 06:00 Resp 18 01/22/23 14:00 BP 171/94 01/22/23 06:00 Pulse Ox 97 01/22/23 06:00 O2 Del Method Room Air 01/22/23 06:00 Data NPU 01/18/23 18:20 01/18/23 18:20 A&P Assessment and plan (1) Major depressive disorder, recurrent: (2) PTSD (post-traumatic stress disorder): (3) Delusions: Plan Rossana is a 62-year-old white female with a reported history of PTSD and depressi on who was admitted to the inpatient unit a couple months ago with a very similar presentation of being on a 96-hour hold with paranoia and some hyperreligious thinking including issues related to devils or demons. Significant concerns about medication adherence exist. 1. Initiate individual group and milieu therapy. 2. Therapeutic observation 15-minute checks on the unit 3. Continue current medication. Except initiate Paxil 20 mg p.o. every morning and decrease Effexor XR to 75 mg p.o. every morning with a plan to discontinue the Effexor. Will desire initiation of Invega Sustenna given her lack of adherence that is likely in the outpatient setting 4. Provider in chair provided photos of the squalor in her home and the limited conditions within which she was living. 5. 21-day hold paperwork was submitted. Hearing 01/25/2023. Involuntary Hold Information 96 Hour Hold: 96 Hour Involuntary Admission: Yes 96 Hour Hold Ending Date: 01/22/23 96 Hour Hold Ending Time: 17:50 Attestations NPU Medical Necessity Statement*: Inpatient hospitalization is medically necessary and the clinically appropriate intervention at this time. We will monitor medications and make changes as indicated. Her likely length of stay is 6-10 days. Coding Level of Care Code Acute Code for [facility] Fwd Diagnoses Major depressive disorder, recurrent F33.9 PTSD (post-traumatic stress disorder) F43.10 Delusions F22
[2023-01-22 21:58] VITALS: BP 144/81; PULSE 93; RESP 17; TEMP 36.8; O2SAT 97
[2023-01-23] MEDS: ibuprofen 600 mg Tablet PO ×3 (04:43→20:45)
[2023-01-23] MEDS: cyclobenzaprine 10 mg Tablet 5 MG PO ×3 (04:43→20:45)
[2023-01-23] MEDS: nicotine 4 mg lozenge MUCOUS MEM (05:48)
[2023-01-23 06:00] VITALS: BP 205/114; PULSE 91; RESP 18; TEMP 36.3; O2SAT 94
[2023-01-23] MEDS: OLANZapine 5 mg ODT PO (06:06)
[2023-01-23] MEDS: nicotine 21 mg Patch 1 PATCH TRANSDERMA (08:29)
--- NOTE | 2023-01-23 09:32 | PC.NURSE ---
spoke to Dr Chakraborty about her refusing the correct dosages of her medication. Patient refusing effexor, only wanting 3mg of Invega. Spoke to Dr Chakraborty and he asked to offer her the Invega injection and to get her Tramadol if she takes the injection today. Patient became angry, refused, called this fiction and nonfiction prose writer a liar and would only talk to the
[2023-01-23 14:00] VITALS: BP 158/88; PULSE 110; RESP 20; TEMP 37.1; O2SAT 93
[2023-01-23] MEDS: blistex lip oint 7 gm Tube 1 APPLIC TOPICAL (14:03)
--- NOTE | 2023-01-23 18:13 | P.NPUPN_ITS ---
Subjective NPU Subjective: Patient presented today continuing to focus on her cat. We talked about the pictures from her place and the graffiti in her room and how bad things have been and the importance of her continuing her medication and therefore getting her injection of Invega Sustenna which she is very resistant to. She talked about getting some tramadol for pain in her foot which was shown not to be broken but was bruised along with her face. She refused to allow the shot. Mental Status Exam MSE Comments: This is an underweight older white female looking older than her stated age with hospital scrubs on and limited grooming and eye contact. No abnormal movements except for mild psychomotor agitation. Mostly uncooperative with exam in mild to moderate distress. Speech was increased rate and normal volume. Mood described as fine and affect irritated. Thought process linear. Thought content: Patient denies suicidal or homicidal ideations, there were no delusions reported but she continues to have paranoid and hyperreligious and some persecutory delusions, she denied auditory or visual hallucinations but describes things that she has seen and heard that do not appear to be real. Attention and concentration were intact and memory was unreliable but none were formally tested. She is alert and oriented x3. Insight and judgment are impaired and impulse control is limited versus impaired. Vitals/I&O/Wt Last Vital Signs Temp 98.8 F 01/23/23 14:00 Pulse 110 H 01/23/23 14:00 Resp 20 H 01/23/23 14:00 BP 158/88 01/23/23 14:00 Pulse Ox 93 01/23/23 14:00 O2 Del Method Room Air 01/23/23 06:00 Data NPU 01/18/23 18:20 01/18/23 18:20 A&P Assessment and plan (1) Major depressive disorder, recurrent: (2) PTSD (post-traumatic stress disorder): (3) Delusions: Plan Rossana is a 62-year-old white female with a reported history of PTSD and depression who was admitted to the inpatient unit a couple months ago with a ve ry similar presentation of being on a 96-hour hold with paranoia and some hyperreligious thinking including issues related to devils or demons. Significant concerns about medication adherence exist. 1. Initiate individual group and milieu therapy. 2. Therapeutic observation 15-minute checks on the unit 3. Continue current medication. Except initiated Paxil 20 mg p.o. every morning and discontinued the Effexor as she has not been taking it. Will desire initiation of Invega Sustenna given her lack of adherence that is likely in the outpatient setting 4. Provider in chair provided photos of the squalor in her home and the limited conditions within which she was living. 5. 21-day hold paperwork was submitted. Hearing 01/25/2023. Involuntary Hold Information 96 Hour Hold: 96 Hour Involuntary Admission: Yes 96 Hour Hold Ending Date: 01/22/23 96 Hour Hold Ending Time: 17:50 Attestations NPU Medical Necessity Statement*: Inpatient hospitalization is medically necessary and the clinically appropriate intervention at this time. We will monitor medications and make changes as indicated. Her likely length of stay is 6-10 days. Coding Level of Care Code Acute Code for g Fwd Diagnoses Major depressive disorder, recurrent F33.9 PTSD (post-traumatic stress disorder) F43.10 Delusions F22
[2023-01-23 19:52] VITALS: BP 195/114; PULSE 96; RESP 17; O2SAT 97
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
[2023-01-24] MEDS: ibuprofen 600 mg Tablet PO ×3 (04:47→17:05)
[2023-01-24] MEDS: cyclobenzaprine 10 mg Tablet 5 MG PO ×3 (04:48→17:04)
[2023-01-24] MEDS: blistex lip oint 7 gm Tube 1 APPLIC TOPICAL (04:58)
[2023-01-24 06:00] VITALS: BP 177/93; PULSE 93; RESP 14; TEMP 36.6; O2SAT 99; BMI 18.8
[2023-01-24] MEDS: OLANZapine 5 mg ODT PO (06:37)
[2023-01-24] MEDS: paliperidone ER 3 mg Tablet 6 MG PO (07:52)
[2023-01-24] MEDS: PARoxetine 20 mg Tablet PO (07:52)
--- NOTE | 2023-01-24 07:56 | PC.NURSE ---
limited shift assessment mood irritable, pt up to desk asking for more pain medicine, was told she received PRN Motrin at 0450 this morning, could not have any more yet. pt asked for anything else? stated she would even take Tylenol, was told by this nurse she didn't have PRN Tylenol on her active med list, I offered to call the physician to get PRN order for Tylenol, patient became more irritated & yelled at this nurse I'll just take my scheduled meds then forget it! did let this nurse listen to her hear and lungs, but would not answer questions asked of her. staff will cont to monitor
--- NOTE | 2023-01-24 09:39 | W.PM.NPUPNS ---
Subjective NPU Subjective: Patient presented today reporting that she was doing fine and identifying that she is aware that her hearing is tomorrow afternoon. She has been highly engaged in graffiti of a very hyperreligious nature with significant attempts by staff to prevent her from getting writing tonsils to write in huge letters on the wall. She endorsed understanding our desire for her not to deface the property but she continued to do it even sneaking in the bathroom to try to do it while unobserved. Mental Status Exam MSE Comments: This is an underweight older white female looking older than her stated age with hospital scrubs on and limited grooming and eye contact. No abnormal movements except for mild psychomotor agitation. Mostly uncooperative with exam in mild to moderate distress. Speech was increased rate and normal volume. Mood described as fine, affect irritable. Thought process linear. Thought content: Patient denies suicidal or homicidal ideations, there were no delusions reported but she continues to have paranoid and hyperreligious and some persecutory delusions, she denied auditory or visual hallucinations but describes things that she has seen and heard that do not appear to be real. Attention and concentration were intact and memory was unreliable but none were formally tested. She is alert and oriented x3. Insight and judgment are impaired and impulse control is limited versus impaired. Vitals/I&O/Wt Last Vital Signs Temp 97.8 F 01/24/23 06:00 Pulse 93 01/24/23 06:00 Resp 14 01/24/23 06:00 BP 177/93 01/24/23 06:00 Pulse Ox 99 01/24/23 06:00 O2 Del Method Room Air 01/24/23 06:00 Weight last 48 hrs Weight 49.895 kg Data NPU 01/18/23 18:20 01/18/23 18:20 A&P Assessment and plan (1) Major depressive disorder, recurrent: (2) PTSD (post-traumatic stress disorder): (3) Delusions: Plan Rossana is a 62-year-old white female with a reported history of PTSD and depression who was admitted to the inpatient unit a couple months ago with a very similar presentation of being on a 96-hour hold with paranoia and some hyperreligious thinking including issues related to devils or demons. Significant concerns about medication adherence exist. 1. Initiate individual group and milieu therapy. 2. Therapeutic observation 15-minute checks on the unit 3. Continue current medication. Except initiated Paxil 20 mg p.o. every morning and discontinued the Effexor as she has not been taking it. Will desire initiation of Invega Sustenna given her lack of adherence that is likely in the outpatient setting 4. Provider in chair provided photos of the squalor in her home and the limited conditions within which she was living. 5. 21-day hold paperwork was submitted. Hearing 01/25/2023. Involuntary Hold Information 96 Hour Hold: 96 Hour Involuntary Admission: Yes 96 Hour Hold Ending Date: 01/22/23 96 Hour Hold Ending Time: 17:50 Attestations NPU Medical Necessity Statement*: Inpatient hospitalization is medically necessary and the clinically appropriate intervention at this time. We will monitor medications and make changes as indicated. Her likely length of stay is 6-10 days. Coding Level of Care Code Acute Code for [facility] Fwd Diagnoses Major depressive disorder, recurrent F33.9 PTSD (post-traumatic stress disorder) F43.10 Delusions F22
--- NOTE | 2023-01-24 11:01 | PC.NURSE ---
PRN FLEXERIL 5 MG GIVEN PO PER PT C/O MUSCLE SPASMS
--- NOTE | 2023-01-24 11:09 | PC.NURSE ---
irritable affect, told me I want a stronger pain pill for my pain! the doctor told me if it took that fucking injection I could get Tramadol! Go ask him now! I told the patient that the doctor was in his office on the phone, with his door shut, & that I would not interrupt his phone call but would ask him as soon as he was available. patient cont to be very irritable about current med situation, but took PRN Motrin & Flexeril from this nurse
[2023-01-24] MEDS: TRAMadol 50 mg Tablet PO (13:47)
[2023-01-24 14:00] VITALS: RESP 17
--- NOTE | 2023-01-24 14:41 | PC.NURSE ---
patient came up to the desk, saying Well you didn't clean off all the edward, I'll wait until everybody is asleep tonight and I'll write it all again! staff attempts to educate patient the importance of not writing on the edward, how it is destruction of hospital property, property that isn't hers, how it creates a non-therapeutic environment for the rest of the patients.
--- NOTE | 2023-01-24 17:43 | PC.NURSE ---
refused vital signs at 1400, hostile with staff, calling staff a bitch because we have been in her room cleaning the coloring off the edward
[2023-01-24 19:57] VITALS: BP 182/105; PULSE 116; RESP 18; TEMP 36.6; O2SAT 97
[2023-01-25] MEDS: cyclobenzaprine 10 mg Tablet 5 MG PO ×2 (00:08→14:41)
[2023-01-25 06:00] VITALS: BP 153/79; PULSE 87; RESP 17; TEMP 36.8; O2SAT 96
[2023-01-25] MEDS: TRAMadol 50 mg Tablet PO (07:06)
[2023-01-25] MEDS: paliperidone ER 3 mg Tablet 6 MG PO (08:44)
[2023-01-25] MEDS: PARoxetine 20 mg Tablet PO (08:45)
[2023-01-25] MEDS: nicotine 21 mg Patch 1 PATCH TRANSDERMA (10:29)
[2023-01-25] MEDS: ibuprofen 600 mg Tablet PO (10:41)
[2023-01-25 14:00] VITALS: RESP 18
--- NOTE | 2023-01-25 15:19 | PC.NURSE ---
off unit for [address]
--- NOTE | 2023-01-25 16:09 | PC.NURSE ---
RETURN TO UNIT FROM COURT
--- NOTE | 2023-01-25 17:11 | P.NPUPN_ITS ---
Subjective NPU Subjective: Patient presented today reporting that she was going to go to the hearing. She did attend the hearing and argued for discharge immediately. She was less than forthcoming on the condition that she was living in and the reason why she was in such squalor. We discussed the fact that given she was taking the medications at her October hospitalization at a level that allow her to be discharged and 2 months later she was back with psychosis suggest that she is not taking the medication and that a long-acting injectable gives her the best chance for ongoing recovery. We discussed a plan for administering the shot in the next 24 hours, once we get the official paperwork about being on a 21-day hold. Mental Status Exam MSE Comments: This is an underweight older white female looking older than her stated age with hospital scrubs on and limited grooming and eye contact. No abnormal movements except for mild psychomotor agitation. Mostly uncooperative with exam in mild to moderate distress. Speech was increased rate and normal volume. Mood described as fine, affect irritable. Thought process linear. Thought content: Patient denies suicidal or homicidal ideations, there were no delusions reported but she continues to have paranoid and hyperreligious and some persecutory delusions, she denied auditory or visual hallucinations but describes things that she has seen and heard that do not appear to be real. Attention and concentration were intact and memory was unreliable but none were formally tested. She is alert and oriented x3. Insight and judgment are impaired and impulse control is limited versus impaired. Vitals/I&O/Wt Last Vital Signs Temp 98.2 F 01/25/23 06:00 Pulse 87 01/25/23 06:00 Resp 17 01/25/23 06:00 BP 153/79 01/25/23 06:00 Pulse Ox 96 01/25/23 06:00 O2 Del Method Room Air 01/25/23 06:00 Weight last 48 hrs Weight 49.895 kg Data NPU 01/18/23 18:20 01/18/23 18:20 A&P Assessment and plan (1) Major depressive disorder, recurrent: (2) PTSD (post-traumatic stress disorder): (3) Delusions: Plan Rossana is a 62-year-old white female with a reported history of PTSD and depression who was admitted to the inpatient unit a couple months ago with a very similar presentation of being on a 96-hour hold with paranoia and some hyperreligious thinking including issues related to devils or demons. Sign ificant concerns about medication adherence exist. 1. Initiate individual group and milieu therapy. 2. Therapeutic observation 15-minute checks on the unit 3. Continue current medication. Except initiated Paxil 20 mg p.o. every morning and discontinued the Effexor as she has not been taking it. Will desire initiation of Invega Sustenna given her lack of adherence that is likely in the outpatient setting 4. Provider in chair provided photos of the squalor in her home and the limited conditions within which she was living. 5. 21-day hold hearing today 01/25/2023. Patient was placed on a 21-day hold. Involuntary Hold Information 96 Hour Hold: 96 Hour Involuntary Admission: Yes 96 Hour Hold Ending Date: 01/22/23 96 Hour Hold Ending Time: 17:50 Attestations NPU Medical Necessity Statement*: Inpatient hospitalization is medically necessary and the clinically appropriate intervention at this time. We will monitor medications and make changes as indicated. Her likely length of stay is 6-10 days. Coding Level of Care Code Acute Code for [facility] Fwd Diagnoses Major depressive disorder, recurrent F33.9 PTSD (post-traumatic stress disorder) F43.10 Delusions F22
[2023-01-25] MEDS: paliperidone palmitate 234 mg Syringe IM (18:08)
--- NOTE | 2023-01-25 18:08 | PC.NURSE ---
INVEGA SUSTENNA INJECTION GIVEN ORDERED BY PHYSICIAN, 234 MG GIVEN INITIALLY IN RIGHT DELTOID, DURING INJECTION PATIENT PULLED HER ARM AWAY BEFORE THE ENTIRE INJECTION WAS GIVEN, PATIENT YELLED AT STAFF SAYING THAT FUCKING HURTS! I KNOW MY RIGHTS, YOU'RE INVADING MY PERSONAL RIGHTS, I'LL BE CALLING MY SEAFOOD PROCESS WORKER TOMORROW IF I'M STILL ALIVE SECURITY CALLED TO UNIT PER DR. GARCÍA REQUEST, STAFF IN HALLWAY ALONG WITH SECURITY TO GIVE THE REST OF THE INJECTION IN LEFT DELTOID. THIS NURSE PLACED HANDS ON TOP OF ARMS OF PATIENT TO HELP ENSURE SMOOTH TRANSITION OF INJECTION, DID NOT HAVE TO MANUAL HOLD PATIENT. PT AGAIN YELLED AND CURSED AT STAFF WHILE REST OF INJECTION WAS GIVEN. TEARFUL AFTER INJECTION, PT STATED FUCK ALL OF YOU AND WALKED BACK TO HER ROOM. STAFF WILL CONT TO MONITOR LOT [id number] EXP 04/2024
[2023-01-25 20:50] VITALS: RESP 18
[2023-01-26] MEDS: TRAMadol 50 mg Tablet PO ×2 (02:27→15:26)
[2023-01-26 05:32] VITALS: BP 127/79; PULSE 90; RESP 18; TEMP 36.8; O2SAT 98
[2023-01-26] MEDS: PARoxetine 20 mg Tablet PO (09:08)
--- NOTE | 2023-01-26 09:09 | PC.NURSE ---
pt refused invega 6mg tablet. states she is taking the shot so she does not need the pill. attempts to educate pt on the reason for the medication administration was unsuccessful, pt became argumentative and refusing med.
[2023-01-26] MEDS: nicotine 21 mg Patch 1 PATCH TRANSDERMA (09:14)
[2023-01-26] MEDS: ibuprofen 600 mg Tablet PO ×2 (10:01→22:34)
[2023-01-26] MEDS: cyclobenzaprine 10 mg Tablet 5 MG PO (10:02)
[2023-01-26 14:00] VITALS: BP 122/89; PULSE 90; RESP 20; TEMP 36.9; O2SAT 95
--- NOTE | 2023-01-26 17:27 | P.NPUPN_ITS ---
Subjective NPU Subjective: Today reporting that she was tired. She reports that she thinks she was sluggish because of the medication. We discussed the fact that it would not happen that quickly from the injection. She continues to be resistant to taking this but we discussed that she would get the second injection in a week and we would continue the process of identifying where she will be able to go after discharge. Otherwise she denied any other issues other than being in the hospital and has been eating fine and at this point she reports sleeping too much. Mental Status Exam MSE Comments: This is an underweight older white female looking older than her stated age with hospital scrubs on and limited grooming and eye contact. No abnormal movements except for mild psychomotor agitation. Mostly uncooperative with exam in mild distress. Speech was increased rate and normal volume. Mood described as fine, affect irritable and subdued. Thought process linear. Thought content: Patient denies suicidal or homicidal ideations, there were no delusions reported but she continues to have paranoid and hyperreligious and some persecutory delusions, she denied auditory or visual hallucinations but describes things that she has seen and heard that do not appear to be real. Attention and concentration were intact and memory was unreliable but none were formally tested. She is alert and oriented x3. Insight and judgment are impaired and impulse control is limited versus impaired. Vitals/I&O/Wt Last Vital Signs Temp 98.3 F 01/26/23 20:03 Pulse 94 01/26/23 20:03 Resp 15 01/26/23 20:03 BP 145/72 01/26/23 20:03 Pulse Ox 97 01/26/23 20:03 O2 Del Method Room Air 01/26/23 20:03 Data NPU 01/18/23 18:20 01/18/23 18:20 A&P Assessment and plan (1) Major depressive disorder, recurrent: (2) PTSD (post-traumatic stress disorder): (3) Delusions: Plan Rossana is a 62-year-old white female with a reported history of PTSD and depr ession who was admitted to the inpatient unit a couple months ago with a very similar presentation of being on a 96-hour hold with paranoia and some hyperreligious thinking including issues related to devils or demons. Significant concerns about medication adherence exist. 1. Initiate individual group and milieu therapy. 2. Therapeutic observation 15-minute checks on the unit 3. Continue current medication. Except initiated Paxil 20 mg p.o. every morning and discontinued the Effexor as she has not been taking it. Will desire initiation of Invega Sustenna given her lack of adherence that is likely in the outpatient setting. Received Invega Sustenna 234 mg IM to the deltoid on 01/26/20 23. 4. Provider in chair provided photos of the squalor in her home and the limited conditions within which she was living. 5. 21-day hold hearing today 01/25/2023. Patient was placed on a 21-day hold. Involuntary Hold Information 96 Hour Hold: 96 Hour Involuntary Admission: Yes 96 Hour Hold Ending Date: 01/22/23 96 Hour Hold Ending Time: 17:50 Attestations NPU Medical Necessity Statement*: Inpatient hospitalization is medically necessary and the clinically appropriate intervention at this time. We will monitor medications and make changes as indicated. Her likely length of stay is 6-10 days. Coding Level of Care Code Acute Code for [facility] Fwd Diagnoses Major depressive disorder, recurrent F33.9 PTSD (post-traumatic stress disorder) F43.10 Delusions F22
[2023-01-26] MEDS: blistex lip oint 7 gm Tube 1 APPLIC TOPICAL (17:37)
[2023-01-26 20:03] VITALS: BP 145/72; PULSE 94; RESP 15; TEMP 36.8; O2SAT 97
[2023-01-27] MEDS: TRAMadol 50 mg Tablet PO ×2 (03:05→15:05)
[2023-01-27 06:00] VITALS: BP 174/75; PULSE 103; RESP 18; TEMP 36.8; O2SAT 96
[2023-01-27] MEDS: ibuprofen 600 mg Tablet PO ×2 (07:14→20:08)
[2023-01-27] MEDS: cyclobenzaprine 10 mg Tablet 5 MG PO ×2 (07:15→15:06)
[2023-01-27] MEDS: nicotine 21 mg Patch 1 PATCH TRANSDERMA (09:29)
[2023-01-27] MEDS: PARoxetine 20 mg Tablet PO (09:30)
--- NOTE | 2023-01-27 13:36 | W.PM.NPUPNS ---
Subjective NPU Subjective: Patient presented today reporting that she is a little sleepy but feeling better. She is refusing her oral Invega which we were trying to maintain as she had some leakage at the time of her. She has already begun talking about discharge and we discussed the fact that she is to have her second injection before she leaves. Otherwise reports he is feeling better and she is less combative. Mental Status Exam MSE Comments: This is an underweight older white female looking older than her stated age with hospital scrubs on and limited grooming and eye contact. No abnormal movements. More cooperative with exam in no acute distress. Speech was more normal rate and volume. Mood described as okay, affect slightly subdued. Thought process linear. Thought content: Patient denies suicidal or homicidal ideations, there were no delusions reported but she continues to have paranoid and hyperreligious and some persecutory delusions that are appearing much less dramatic, she denied auditory or visual hallucinations. Attention and concentration were intact and memory was unreliable but none were formally tested. She is alert and oriented x3. Insight and judgment are impaired and impulse control is impaired. Vitals/I&O/Wt Last Vital Signs Temp 98.2 F 01/27/23 06:00 Pulse 103 H 01/27/23 06:00 Resp 18 01/27/23 06:00 BP 174/75 01/27/23 06:00 Pulse Ox 96 01/27/23 06:00 O2 Del Method Room Air 01/27/23 06:00 Data NPU 01/18/23 18:20 01/18/23 18:20 A&P Assessment and plan (1) Major depressive disorder, recurrent: (2) PTSD (post-traumatic stress disorder): (3) Delusions: Plan Rossana is a 62-year-old white female with a reported history of PTSD and depression who was admitted to the inpatient unit a couple months ago with a very similar presentation of being on a 96-hour hold with paranoia and some hyperreligious thinking including issues related to devils or demons. Significant concerns about medication adherence exist. 1. Initiate individual group and milieu therapy. 2. Therapeutic observation 15-minute checks on the unit 3. Continue current medication. Except initiated Paxil 20 mg p.o. every morning and discontinued the Effexor as she has not been taking it. Will desire initiation of Invega Sustenna given her lack of adherence that is likely in the outpatient setting. Received Invega Sustenna 234 mg IM to the deltoid on 01/25/2023. 4. Provider in chair provided photos of the squalor in her home and the limited conditions within which she was living. 5. 21-day hold hearing today 01/25/2023. Patient was placed on a 21-day hold. Involuntary Hold Information 96 Hour Hold: 96 Hour Involuntary Admission: Yes 96 Hour Hold Ending Date: 01/22/23 96 Hour Hold Ending Time: 17:50 Attestations NPU Medical Necessity Statement*: Inpatient hospitalization is medically necessary and the clinically appropriate intervention at this time. We will monitor medications and make changes as indicated. Her likely length of stay is 6-10 days. Coding Level of Care Code Acute Code for [facility] Fwd Diagnoses Major depressive disorder, recurrent F33.9 PTSD (post-traumatic stress disorder) F43.10 Delusions F22
[2023-01-27 14:00] VITALS: BP 149/78; PULSE 104; RESP 18; TEMP 36.8; O2SAT 97
[2023-01-27] MEDS: docusate sodium 100 mg Capsule PO (20:08)
--- NOTE | 2023-01-27 20:08 | PC.NURSE ---
PRN Colace given for pt complaint of not having a BM in two days. PRN Ibuprofen given for complaint of mild pain.
[2023-01-27 21:04] VITALS: BP 146/79; PULSE 103; RESP 16; TEMP 37; O2SAT 97
[2023-01-28] MEDS: TRAMadol 50 mg Tablet PO ×2 (03:07→14:59)
[2023-01-28] MEDS: cyclobenzaprine 10 mg Tablet 5 MG PO (03:08)
--- NOTE | 2023-01-28 03:08 | PC.NURSE ---
PRN Tramadol and Flexeril given as ordered per pt request.
[2023-01-28 06:00] VITALS: BP 168/79; PULSE 97; RESP 16; O2SAT 96
[2023-01-28] MEDS: polyethylene glycol 3350 Pkt 17 gm PO (08:08)
[2023-01-28] MEDS: paliperidone ER 3 mg Tablet 6 MG PO (08:09)
[2023-01-28] MEDS: PARoxetine 20 mg Tablet PO (08:09)
[2023-01-28] MEDS: bisacodyl 5 mg Tablet 10 MG PO (12:13)
[2023-01-28] MEDS: ibuprofen 600 mg Tablet PO ×2 (12:15→20:12)
--- NOTE | 2023-01-28 12:18 | P.NPUPN_ITS ---
Subjective NPU Subjective: Patient presented today reporting that she is feeling tired. She of course feels that the medication thoughts causing it but we talked about people sometimes feeling fairly lethargic when their manic episode ends. We discussed the risks, benefits and alternatives of decreasing her oral Invega to 3 mg with the goal of discontinuing it when she gets her second shot on Wednesday. Otherwise she endorses feeling better than she had earlier in the week. Mental Status Exam MSE Comments: This is an underweight older white female looking older than her stated age with hospital scrubs on and limited grooming and eye contact. No abnormal movements. More cooperative with exam in no acute distress. Speech was more normal rate and volume. Mood described as okay, but tired, affect congruent and subdued. Thought process linear. Thought content: Patient denies suicidal or homicidal ideations, there were no delusions reported and she appears to be having less paranoid and hyperreligious and some persecutory delusions that are appearing much less dramatic, she denied auditory or visual hallucinations. Attention and concentration were intact and memory was unreliable but none were formally tested. She is alert and oriented x3. Insight and judgment are limited and impulse control is impaired. Vitals/I&O/Wt Last Vital Signs Temp 98.6 F 01/27/23 21:04 Pulse 97 01/28/23 06:00 Resp 16 01/28/23 06:00 BP 168/79 01/28/23 06:00 Pulse Ox 96 01/28/23 06:00 O2 Del Method Room Air 01/28/23 06:00 Data NPU 01/18/23 18:20 01/18/23 18:20 A&P Assessment and plan (1) Major depressive disorder, recurrent: (2) PTSD (post-traumatic stress disorder): (3) Delusions: Plan Rossana is a 62-year-old white female with a reported history of PTSD and depression who was admitted to the inpatient unit a couple months ago with a very similar presentation of being on a 96-hour hold with paranoia and some hyperreligious thinking including issues related to devils or demons. Significant concerns about medication adherence exist. 1. Initiate individual group and milieu therapy. 2. Therapeutic observation 15-minute checks on the unit 3. Continue current medication. Except initiated Paxil 20 mg p.o. every morning and discontinued the Effexor as she has not been taking it. Will desire initiation of Invega Sustenna given her lack of adherence that is likely in the outpatient setting. Received Invega Sustenna 234 mg IM to the deltoid on 01/25/2023. She should get the second injection prior to discharge given her res istance to medications. Decreased oral Invega to 3 mg p.o. daily with plan for discontinuation with second injection. 4. Provider in chair provided photos of the squalor in her home and the limited conditions within which she was living. 5. 21-day hold hearing today 01/25/2023. Patient was placed on a 21-day hold. Involuntary Hold Information 96 Hour Hold: 96 Hour Involuntary Admission: Yes 96 Hour Hold Ending Date: 01/22/23 96 Hour Hold Ending Time: 17:50 Attestations NPU Medical Necessity Statement*: Inpatient hospitalization is medically necessary and the clinically appropriate intervention at this time. We will monitor medications and make changes as indicated. Her likely length of stay is 5-9 days. Coding Level of Care Code Acute Code for [facility] Fwd Diagnoses Major depressive disorder, recurrent F33.9 PTSD (post-traumatic stress disorder) F43.10 Delusions F22
[2023-01-28 14:00] VITALS: BP 154/75; PULSE 97; RESP 17; TEMP 36.6; O2SAT 97
[2023-01-28 19:53] VITALS: BP 151/83; PULSE 95; RESP 18; TEMP 36.6; O2SAT 93
[2023-01-28] MEDS: magnesium hydroxide 30 mL UDC 15 ML PO (20:12)
--- NOTE | 2023-01-28 20:12 | PC.NURSE ---
PRN Milk Of Mag given for pt complaint of constipation. PRN Ibuprofen given for pt complaint of my whole body hurts.
[2023-01-29] MEDS: TRAMadol 50 mg Tablet PO ×2 (02:18→15:19)
[2023-01-29 06:00] VITALS: BP 163/101; PULSE 94; RESP 17; O2SAT 98
[2023-01-29] MEDS: ibuprofen 600 mg Tablet PO (07:33)
[2023-01-29] MEDS: PARoxetine 20 mg Tablet PO (08:08)
[2023-01-29] MEDS: paliperidone ER 3 mg Tablet PO (08:08)
[2023-01-29] MEDS: nicotine 21 mg Patch 1 PATCH TRANSDERMA (08:46)
--- NOTE | 2023-01-29 13:52 | P.NPUPN_ITS ---
Subjective NPU Subjective: Presented today reporting that she is feeling okay. She is less sleepy and reports that the decrease in Invega likely helping. We discussed her getting her psych injection a Wednesday and that they could then determine discharge planning. We discussed the concerns exist about long-term planning for her housing because of how poorly she kept the place while her mother declined. She reports that she is doing better and she was very pleasant. Mental Status Exam MSE Comments: This is an underweight older white female looking older than her stated age with hospital scrubs on with improving grooming and eye contact. No abnormal movements. More cooperative with exam in no acute distress. Speech was more normal rate and volume. Mood described as okay, affect congruent and less subdued. Thought process linear. Thought content: Patient denies suicidal or homicidal ideations, there were no delusions reported or noted, she denied auditory or visual hallucinations. Attention and concentration were intact and memory was more reliable but none were formally tested. She is alert and chiquis ented x3. Insight and judgment are limited and impulse control is limited but improving. Vitals/I&O/Wt Last Vital Signs Temp 97.8 F 01/28/23 19:53 Pulse 94 01/29/23 06:00 Resp 17 01/29/23 06:00 BP 163/101 01/29/23 06:00 Pulse Ox 98 01/29/23 06:00 O2 Del Method Room Air 01/29/23 06:00 Data NPU 01/18/23 18:20 01/18/23 18:20 A&P Assessment and plan (1) Major depressive disorder, recurrent: (2) PTSD (post-traumatic stress disorder): (3) Delusions: Plan Rossana is a 62-year-old white female with a reported history of PTSD and depression who was admitted to the inpatient unit a couple months ago with a very similar presentation of being on a 96-hour hold with paranoia and some hyperreligious thinking including issues related to devils or demons. Significant concerns about medication adherence exist. 1. Initiate individual group and milieu therapy. 2. Therapeutic observation 15-minute checks on the unit 3. Continue current medication. Except initiated Paxil 20 mg p.o. every morning and discontinued the Effexor as she has not been taking it. Will desire initiation of Invega Sustenna given her lack of adherence that is likely in the outpatient setting. Received Invega Sustenna 234 mg IM to the deltoid on 01/25/2023. She should get the second injection prior to discharge given her resistance to medications. Decreased oral Invega to 3 mg p.o. daily with plan for discontinuation with second injection. 4. Provider in chair provided photos of the squalor in her home and the limited conditions within which she was living. 5. 21-day hold hearing 01/25/2023. Patient was placed on a 21-day hold. Involuntary Hold Information 96 Hour Hold: 96 Hour Involuntary Admission: Yes 96 Hour Hold Ending Date: 01/22/23 96 Hour Hold Ending Time: 17:50 Attestations NPU Medical Necessity Statement*: Inpatient hospitalization is medically necessary and the clinically appropriate intervention at this time. We will monitor medications and make changes as indicated. Her likely length of stay is 4-8 days. Coding Level of Care Code Acute Code for [facility] Fwd Diagnoses Major depressive disorder, recurrent F33.9 PTSD (post-traumatic stress disorder) F43.10 Delusions F22
[2023-01-29 14:00] VITALS: BP 144/80; PULSE 113; RESP 17; TEMP 36.6; O2SAT 98
[2023-01-29] MEDS: cyclobenzaprine 10 mg Tablet 5 MG PO (15:20)
[2023-01-29] MEDS: magnesium hydroxide 30 mL UDC 15 ML PO (19:56)
--- NOTE | 2023-01-29 19:56 | PC.NURSE ---
PRN Milk Of Mag given for pt complaint of feeling constipated.
[2023-01-29 21:51] VITALS: BP 164/95; PULSE 100; RESP 16; TEMP 37; O2SAT 95
[2023-01-30] MEDS: docusate sodium 100 mg Capsule PO (04:09)
[2023-01-30] MEDS: TRAMadol 50 mg Tablet PO ×3 (04:09→23:01)
[2023-01-30 06:00] VITALS: BP 150/79; PULSE 111; RESP 18; TEMP 36.6; O2SAT 97
[2023-01-30] MEDS: ibuprofen 600 mg Tablet PO ×2 (07:32→19:53)
--- NOTE | 2023-01-30 07:50 | W.PM.NPUPNS ---
Subjective NPU Subjective: Patient presented today reporting that she is feeling significantly better. She is an early riser and was up and about. She continued to be quite pleasant and thankful and we discussed that Dr. Villarreal would be here in the morning, the plan was to get her second injection and on Wednesday and begin considering discharge options. She is agreeable to that plan. Mental Status Exam MSE Comments: This is an underweight older white female looking older than her stated age with hospital scrubs on with improving grooming and eye contact. No abnormal movements. More cooperative with exam in no acute distress. Speech was more normal rate and volume. Mood described as feeling better, affect congruent. Thought process more organized. Thought content: Patient denies suicidal or homicidal ideations, there were no delusions reported or noted, she denied auditory or visual hallucinations. Attention and concentration were intact and memory was more reliable but none were formally tested. She is alert and oriented x3. Insight and judgment are limited and impulse control is limited but improving. Vitals/I&O/Wt Last Vital Signs Temp 98.0 F 01/30/23 21:13 Pulse 86 01/30/23 21:13 Resp 16 01/30/23 21:13 BP 147/77 01/30/23 21:13 Pulse Ox 98 01/30/23 21:13 O2 Del Method Room Air 01/30/23 14:00 Data NPU 01/18/23 18:20 01/18/23 18:20 A&P Assessment and plan (1) Major depressive disorder, recurrent: (2) PTSD (post-traumatic stress disorder): (3) Delusions: Plan Rossana is a 62-year-old white female with a reported history of PTSD and depression who was admitted to the inpatient unit a couple months ago with a very similar presentation of being on a 96-hour hold with paranoia and some hyperreligious thinking including issues related to devils or demons. Significant concerns about medication adherence exist. 1. Initiate individual group and milieu therapy. 2. Therapeutic observation 15-minute checks on the unit 3. Continue current medication. Except initiated Paxil 20 mg p.o. every morning and discontinued the Effexor as she has not been taking it. Will desire initiation of Invega Sustenna given her lack of adherence that is likely in the outpatient setting. Received Invega Sustenna 234 mg IM to the deltoid on 01/25/2023. She should get the second injection prior to discharge given her resistance to medications. Decreased oral Invega to 3 mg p.o. daily with plan for discontinuation with second injection. Started tramadol 50 mg p.o. twice daily for pain complaints a few days ago but not discharged on that medication. 4. Provider in chair provided photos of the squalor in her home and the limited conditions within which she was living. 5. 21-day hold hearing 01/25/2023. Patient was placed on a 21-day hold. Involuntary Hold Information 96 Hour Hold: 96 Hour Involuntary Admission: Yes 96 Hour Hold Ending Date: 01/22/23 96 Hour Hold Ending Time: 17:50 Attestations NPU Medical Necessity Statement*: Inpatient hospitalization is medically necessary and the clinically appropriate intervention at this time. We will monitor medications and make changes as indicated. Her likely length of stay is 3-7 days. Coding Level of Care Code Acute Code for [facility] Fwd Diagnoses Major depressive disorder, recurrent F33.9 PTSD (post-traumatic stress disorder) F43.10 Delusions F22
[2023-01-30] MEDS: nicotine 21 mg Patch 1 PATCH TRANSDERMA (09:11)
[2023-01-30] MEDS: cyclobenzaprine 10 mg Tablet 5 MG PO (09:11)
[2023-01-30] MEDS: PARoxetine 20 mg Tablet PO (09:11)
[2023-01-30] MEDS: paliperidone ER 3 mg Tablet PO (09:11)
[2023-01-30] MEDS: nicotine 4 mg lozenge MUCOUS MEM (11:24)
[2023-01-30 14:00] VITALS: BP 162/84; PULSE 80; RESP 18; TEMP 36.6; O2SAT 97
[2023-01-30 21:13] VITALS: BP 147/77; PULSE 86; RESP 16; TEMP 36.7; O2SAT 98
[2023-01-31 06:00] VITALS: BP 161/83; PULSE 109; RESP 18; TEMP 36.8; O2SAT 97
[2023-01-31] MEDS: paliperidone ER 3 mg Tablet PO (08:07)
[2023-01-31] MEDS: PARoxetine 20 mg Tablet PO (08:07)
[2023-01-31] MEDS: cyclobenzaprine 10 mg Tablet 5 MG PO ×2 (08:11→20:59)
[2023-01-31] MEDS: ibuprofen 600 mg Tablet PO ×2 (08:11→15:22)
--- NOTE | 2023-01-31 08:11 | PC.NURSE ---
PRN FLEXERIL 5 MG GIVEN PO PER PT C/O MUSCLE SPASMS, PRN MOTRIN ALSO GIVEN FOR C/O HEADACHE
[2023-01-31] MEDS: TRAMadol 50 mg Tablet PO (11:04)
[2023-01-31 14:00] VITALS: BP 138/69; PULSE 107; RESP 18; TEMP 36.6; O2SAT 96
--- NOTE | 2023-01-31 14:53 | PC.NURSE ---
irritable affect noted, cursing & tearful after conversation with physician. upset that she is to receive another dose of Invega Sustenna today or tomorrow, patient cont to curse that That isn't what Doctor Palmer told me, he said it would be monthly staff attempted to explain the sequence of Invega Sustenna injections, how you get 234 mg then a week later 156 mg then monthly 117 mg. patient cont to cry and curse at staff, saying well no one has ever explained that to me! I offered to print her education pertaining to Invega sustenna, patient refused saying she didn't want it. prn medication offered, patient refused. asked staff to leave her room.
--- NOTE | 2023-01-31 16:17 | P.NPUPN_ITS ---
Subjective NPU Subjective: Patient is a 62-year-old white female who is currently on a 21-day hold admitted with psychosis. She had minimized any depression. She had appeared agitated when receiving information that she would likely need a second shot tomorrow. She states that she did not think she needed a shot. She was unable to describe why she was here in the hospital. She stated that she wished to go home soon. She had a large the past history of PTSD and depression. Mental Status Exam MSE Comments: This is an underweight older white female looking older than her stated age with hospital scrubs on with improving grooming and eye contact. No abnormal movements. She was somewhat hostile on examination and appeared in significant distress. Speech was more normal in rate but increased in volume. Mood described as feeling better. Affect was irritable and mood incongruent. Tthought process was perseverative about returning home. Thought content: Patient denies suicidal or homicidal ideation, there were no delusions reported or noted, she denied auditory or visual hallucinations. She did appear more paranoid than what had been reported yesterday. Attention and concentration were intact and memory was more reliable but none were formally tested. She is alert and oriented x3. Insight and judgment are limited and impulse control was poor.. Vitals/I&O/Wt Last Vital Signs Temp 97.8 F 01/31/23 14:00 Pulse 107 H 01/31/23 14:00 Resp 18 01/31/23 14:00 BP 138/69 01/31/23 14:00 Pulse Ox 96 01/31/23 14:00 O2 Del Method Room Air 01/30/23 14:00 Data NPU 01/18/23 18:20 01/18/23 18:20 A&P Assessment and plan (1) Major depressive disorder, recurrent: (2) PTSD (post-traumatic stress disorder): (3) Delusions: Plan Rossana is a 62-year-old white female with a reported history of PTSD and depression who was admitted to the inpatient unit a couple months ago with a very similar presentation of being on a 96-hour hold with paranoia and some hyperreligious thinking including issues related to devils or demons. Sign ificant concerns about medication adherence exist. 1. Initiate individual group and milieu therapy. 2. Therapeutic observation 15-minute checks on the unit 3. Continue current medication. Except initiated Paxil 20 mg p.o. every morning and discontinued the Effexor as she has not been taking it. Will desire initiation of Invega Sustenna given her lack of adherence that is likely in the outpatient setting. Received Invega Sustenna 234 mg IM to the deltoid on 01/25/2023. Second injection due tommorow. Decreased oral Invega to 3 mg p.o. daily with plan for discontinuation with second injection. Started tramadol 50 mg p.o. twice daily for pain complaints a few days ago but not discharged on that medication. 4. Provider in chair provided photos of the squalor in her home and the limited conditions within which she was living. 5. Patient was placed on a 21-day hold. Involuntary Hold Information 96 Hour Hold: 96 Hour Involuntary Admission: Yes 96 Hour Hold Ending Date: 01/22/23 96 Hour Hold Ending Time: 17:50 Attestations NPU Medical Necessity Statement*: Inpatient hospitalization is medically necessary and the clinically appropriate intervention at this time. We will monitor medications and make changes as indicated. Her likely length of stay is 3-5 days. Coding Level of Care Code Acute Code for [facility] Fwd Diagnoses Major depressive disorder, recurrent F33.9 PTSD (post-traumatic stress disorder) F43.10 Delusions F22
[2023-01-31] MEDS: paliperidone palmitate 156 mg Syringe IM (17:53)
--- NOTE | 2023-01-31 17:59 | PC.NURSE ---
INVEGA SUSTENNA 156 MG GIVEN IM ORDERED BY PHYSICIAN, INJECTION GIVEN IN LEFT HIP, EDUCATED ON MED GIVEN, RESISTANCE FROM PATIENT ABOUT RECEIVING INJECTION, SECURITY BY UNIT FOR STANDBY ASSISTANCE IF NEEDED. TOOK INJECTION AFTER MUCH ENCOURAGEMENT LOT [id number] EXP 05/2024
[2023-01-31 20:06] VITALS: BP 162/79; PULSE 104; RESP 18; TEMP 36.5; O2SAT 96
[2023-02-01] MEDS: TRAMadol 50 mg Tablet PO ×2 (02:12→14:07)
[2023-02-01 06:00] VITALS: BP 160/84; PULSE 73; RESP 16; TEMP 36.6; O2SAT 96
[2023-02-01] MEDS: polyethylene glycol 3350 Pkt 17 gm PO (08:03)
[2023-02-01] MEDS: paliperidone ER 3 mg Tablet PO (08:03)
[2023-02-01] MEDS: PARoxetine 20 mg Tablet PO (08:03)
[2023-02-01] MEDS: docusate sodium 100 mg Capsule PO (08:03)
[2023-02-01] MEDS: cyclobenzaprine 10 mg Tablet 5 MG PO (08:03)
[2023-02-01] MEDS: ibuprofen 600 mg Tablet PO (08:05)
[2023-02-01 14:00] VITALS: BP 111/66; PULSE 88; RESP 18; TEMP 36.6; O2SAT 98
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
== END 2023-02-01 16:26 | disposition home or self-care (01) | DRG 885 ==
LOC: ER 19:35 → NP 22:54
PROVIDERS: Admitting Provider Psychiatry & Neurology Psychiatry; Emergency Provider Emergency Medicine; Visit Provider Psychiatry & Neurology Psychiatry
DX: F33.3 Major depressive disorder, recurrent, severe with psychotic symptoms (principal); F43.10 Post-traumatic stress disorder, unspecified
CPT/HCPCS: 36415; 73630; 80053; 80306; 80307; 81003; 84443; 85025; 96372; 97150; 97165; 99285; J3486

== ENCOUNTER → 2023-03-08 09:06 | Outpatient (BNVA) | payer MEDICAID, SELFPAY | PROVIDERS: Visit Provider Family Medicine | DX: R10.9 Unspecified abdominal pain (principal) | CPT/HCPCS: 81000 ==

== ENCOUNTER 2023-08-17 19:31 | Inpatient (IN) | payer MEDICAID, SELFPAY ==
[2023-08-17 19:33] VITALS: BP 191/102; PULSE 107; RESP 16; TEMP 36.9; O2SAT 98
--- NOTE | 2023-08-17 20:06 | ED.C_ITS ---
HPI - Psych General: Chief Complaint: Psychiatric Symptoms Stated Complaint: 96 hr hold Time Seen by Provider: 08/17/23 20:06 History of Present Illness: 63-year-old female presents to the emergency department after demonstrating bizarre and unusual behavior at her apartment complex. She was apparently being extremely hostile towards the maintenance of way supervisor and has stated that something was wrong with her floor which ultimately caused her to choose to defecate in plastic bags in her apartment. The patient does not appear to be a very good historian she states that the only reason she was brought to the emergency department is because the civil division deputy sheriff always has a benavidez to her apartment and that is why he brought her here. The patient initially repeated several times that she was doing just fine in her apartment and that she was angry at the civil division deputy sheriff because he is the one who made her come in to be evaluated. She states that she feels other people are trying to harm her and harassed her Associated symptoms: Reports depression; Deny auditory hallucinations, visual hallucinations, homicidal ideation or suicidal ideation Review of Systems General: Reports: 10 or more systems reviewed and unremarkable except in HPI and below Psych: Reports: depression and paranoia; Denies: visual hallucinations, auditory hallucinations, suicidal ideation or homicidal ideation PFS ED PFSH: Medical History (Updated 08/22/23 @ 16:16 by Dennis Feliz MD) Depression Major depressive disorder, recurrent Psychiatric symptoms PTSD (post-traumatic stress disorder) Thyroid disorder Surgical History (Updated 11/11/22 @ 11:37 by Mir Carreno MD) No significant past surgical history Social History (Updated 03/08/23 @ 08:33 by Gale Freeman LPN) Smoking and tobacco/nicotine status: current every day tobacco/nicotine user Physical Exam Narrative: EXAM NARRATIVE: Constitutional: the patient appears well nourished and of normal development. Vital signs as documented. No acute distress at present. Alert and oriented-to person, place, time and situation. She is very difficult to glean information from as she feels like people are out to get her and harassed her. Head, eyes, ears, nose, mouth, throat: Normocephalic, atraumatic. Pupils-equal, round, reactive to light. No scleral icterus. Normal-appearing external ears. Normal appearing nasal turbinates, no drainage. No obvious oral lesions, pos terior oropharynx without erythema or exudates. Neck: Supple, trachea is midline, no lymphadenopathy, no jugular venous distension, thyromegaly, or carotid bruits. Carotid upstrokes are brisk bilater ally. Lungs: clear to auscultation to all lung zhou. Symmetrical rise and fall of chest, no obvious signs of increased work of breathing at present. Cardiac: Regular rate and rhythm, positive S1, S2. No murmurs, rubs or gallops that I can appreciate Abdomen: Soft, non-tender to palpation, normal active bowel sounds to all quadrants. No palpable masses, no organomegaly and abdominal bruits. Extremities: 2+ pulses in the upper extremities that are equal bilaterally, 2+ pulses in the lower extremities that are equal bilaterally. Non-edematous. Moves all extremities well, sensation to all extremities are noted. Skin: Warm, dry, intact. Course Vital Signs: Vital signs: Vital Signs Temperature 98.1 F 08/22/23 14:00 Pulse Rate 80 08/22/23 14:00 Respiratory Rate 18 08/22/23 14:00 Blood Pressure 161/91 08/22/23 14:00 Pulse Oximetry 99 08/22/23 14:00 Oxygen Delivery Me thod Room Air 08/22/23 06:00 MDM - Psych Medical Decision Making Physical exam completed and documented, I will obtain the appropriate laboratory evaluation to include a CBC CMP urinalysis urine drug screen Tylenol and salicylate level as well as alcohol level for psychiatric medical clearance and inpatient psychiatric placement. Medical Records I reviewed the patient's medical records. Lab Data I reviewed the patient's lab results. 08/17/23 20:18 08/17/23 20:18 Laboratory Results WBC 8.88 10^3/uL (3.29-11.43) 08/17/23 20:18 RBC 5.55 10^6/uL (3.85-5.65) 08/17/23 20:18 Hgb 14.80 g/dL (11.27-16.99) 08/17/23 20:18 Hct 47.1 % (36-47) H 08/17/23 20:18 MCV 84.9 fl (85-98) L 08/17/23 20:18 MCH 26.7 pg (27-33) L 08/17/23 20:18 MCHC 31.4 g/dL (30-55) 08/17/23 20:18 RDW 16.3 % (12.1-15.1) H 08/17/23 20:18 Plt Count 416 10^3/cmm (157-399) H 08/17/23 20:18 MPV 9.1 fL (7.4-10.4) 08/17/23 20:18 Neut % (Auto) 66.3 % 08/17/23 20:18 Lymph % (Auto) 24.9 % 08/17/23 20:18 [place] % (Auto) 7.8 % 08/17/23 20:18 Eos % (Auto) 0.3 % 08/17/23 20:18 Baso % (Auto) 0.6 % 08/17/23 20:18 Neut # (Auto) 5.89 10^3/uL (1.8-7.7) 08/17/23 20:18 Lymph # (Auto) 2.2 10^3/uL (0.8-4.8) 08/17/23 20:18 [place] # (Auto) 0.7 10^3/uL (0.2-0.9) 08/17/23 20:18 Eos # (Auto) 0.0 10^3/uL (0.0-0.8) 08/17/23 20:18 Baso # (Auto) 0.1 10^3/uL (0.0-0.1) 08/17/23 20:18 Nucleated RBC % (auto) 0 % 08/17/23 20:18 Nucleated RBCs # 0.0 /100WBC 08/17/23 20:18 Sodium 138 mmol/L (136-145) 08/17/23 20:18 Potassium 4.0 mmol/L (3.5-5.1) 08/17/23 20:18 Chloride 97 mmol/L (98-107) L 08/17/23 20:18 Carbon Dioxide 27 mmol/L (22-29) 08/17/23 20:18 Anion Gap 18.0 (5-19) 08/17/23 20:18 BUN 4 mg/dL (8-23) L 08/17/23 20:18 Creatinine 0.7 mg/dL (0.5-0.9) 08/17/23 20:18 GFR Calculation 85.1 mL/min (90-130) L 08/17/23 20:18 Glucose 150 mg/dL (65-115) H 08/17/23 20:18 Calculated Osmolality 286 mOsm/kg (285-295) 08/17/23 20:18 Calcium 10.3 mg/dL (8.5-10.5) 08/17/23 20:18 Total Bilirubin 0.2 mg/dL (0.15-1.2) 08/17/23 20:18 AST 18 U/L (0-32) 08/17/23 20:18 ALT 16 U/L (0-33) 08/17/23 20:18 Alkaline Phosphatase 94 U/L (35-105) 08/17/23 20:18 Total Protein 8.4 g/dL (6.6-8.7) 08/17/23 20:18 Albumin 4.9 g/dL (3.5-5.2) 08/17/23 20:18 Globulin 3.5 g/dL (1.3-4.6) 08/17/23 20:18 HCG, Qual Negative (Negative) 08/17/23 19:55 Urine Color Yellow (Yellow) 08/17/23 19:55 Urine Appearance Clear (CLEAR) 08/17/23 19:55 Urine pH 7 (5-7) 08/17/23 19:55 Ur Specific [place] 1.010 (1.005-1.030) 08/17/23 19:55 Urine Protein Neg (Negative) 08/17/23 19:55 Urine Glucose (UA) Norm (Normal) 08/17/23 19:55 Urine Ketones Negative (Negative) 08/17/23 19:55 Urine Blood Neg (Negative) 08/17/23 19:55 Urine Nitrate Negative (Negative) 08/17/23 19:55 Urine Bilirubin Neg (Negative) 08/17/23 19:55 Urine Urobilinogen Norm mg/dL (Negative) 08/17/23 19:55 Ur Leukocyte Esterase Negative (Negative) 08/17/23 19:55 Salicylates < 0.3 mg/dL (3-10) L 08/17/23 20:18 Urine Opiates Screen Negative ng/mL (Negative) 08/17/23 19:55 Acetaminophen < 5.0 ug/mL (10-30) L 08/17/23 20:18 Ur Barbiturates Screen Negative ng/mL (Negative) 08/17/23 19:55 Ur Phencyclidine Scrn Negative ng/mL (Negative) 08/17/23 19:55 Ur Amphetamines Screen Negative ng/mL (Negative) 08/17/23 19:55 U Benzodiazepines Scrn Negative ng/mL (Negative) 08/17/23 19:55 Urine Cocaine Screen Negative ng/mL (Negative) 08/17/23 19:55 U Marijuana (THC) Screen Negative ng/mL (Negative) 08/17/23 19:55 Ethyl Alcohol < 10 mg/dL (0-10) 08/17/23 20:18 No radiology studies performed this visit Discharge Plan Discharge Patient Disposition: Admitted As Inpatient Admit Provider: Luis Chakraborty Clinical Impression: Acute psychosis Condition: Stable Coding Level of Care Code ED Digital Marketing Program Manager for [employer] Rm
[2023-08-17 20:09] LABS: HCG Qualitative Urine. Negative (Negative)
[2023-08-17 20:21] LABS: Add Urine Microscopic? NO; Charge for UA Resulting for Rev
[2023-08-17 20:22] LABS: Bilirubin Urine Neg (Negative); Blood Urine Neg (Negative); Glucose Urine UA Norm (Normal); Ketones Urine Negative (Negative); Leukocyte Esterase Urine Negative (Negative); Nitrate Urine Negative (Negative); Protein Urine Neg (Negative); Urine Appearance Clear (CLEAR); Urine Color Yellow (Yellow); Urobilinogen Urine Norm (Negative); pH Urine 7 (5-7)
--- NOTE | 2023-08-17 20:26 | PC.NURSE ---
pt is changed into paper scrubs, all items removed from room. pt given 1 turkey sandwich, 1 jello, 1 spoon. PSA at bedside aware of spoon.
[2023-08-17 20:27] LABS: Basophils # 0.1 10^3/uL (0.0-0.1); Basophils % 0.6 %; Eosinophils % 0.3 %; Hematocrit 47.1 % (36-47); Lymphocytes # 2.2 10^3/uL (0.8-4.8); Lymphocytes % 24.9 %; Mean Corpuscular HGB Conc 31.4 g/dL (30-55); Mean Corpuscular Hemoglobin 26.7 pg (27-33); Mean Corpuscular Volume 84.9 fl (85-98); Mean Platelet Volume 9.1 fL (7.4-10.4); Monocytes # 0.7 10^3/uL (0.2-0.9); Monocytes % 7.8 %; Neutrophils # 5.89 10^3/uL (1.8-7.7); Neutrophils % 66.3 %; Nucleated Red Blood Cells % 0 %; Platelet Count 416 10^3/cmm (157-399); Red Blood Count 5.55 10^6/uL (3.85-5.65); Red Cell Distribution Width 16.3 % (12.1-15.1); White Blood Count 8.88 10^3/uL (3.29-11.43)
[2023-08-17 20:31] LABS: Amphetamines Screen Urine Negative (Negative); Barbiturates Screen Urine Negative (Negative); Benzodiazepines Screen Urine Negative (Negative); Cocaine Screen Urine Negative (Negative); Opiate Screen Urine Negative (Negative); PCP Screen Urine Negative (Negative); THC Screen Urine Negative (Negative)
--- NOTE | 2023-08-17 21:10 | PC.NURSE ---
pt currently cooperative and talking with PSA
[2023-08-17 21:11] LABS: Alanine Aminotransferase 16 U/L (0-33); Albumin Level 4.9 g/dL (3.5-5.2); Alkaline Phosphatase 94 U/L (35-105); Aspartate Amino Transferase 18 U/L (0-32); Blood Urea Nitrogen 4 mg/dL (8-23); Calcium 10.3 mg/dL (8.5-10.5); Carbon Dioxide 27 mmol/L (22-29); Chloride 97 mmol/L (98-107); Globulin 3.5 g/dL (1.3-4.6); Glomerular Filtration Rate 85.1 mL/min (90-130); Glucose 150 mg/dL (65-115); Osmolality Calculated 286 mOsm/kg (285-295); Sodium 138 mmol/L (136-145); Total Bilirubin 0.2 mg/dL (0.15-1.2); Total Protein 8.4 g/dL (6.6-8.7)
[2023-08-17 21:12] LABS: Acetaminophen < 5.0 ug/mL (10-30); Alcohol Level < 10 mg/dL (0-10); Salicylate < 0.3 mg/dL (3-10)
--- NOTE | 2023-08-17 21:27 | PC.NURSE ---
pt given 1 turkey sandwich and a coke to drink. pt pleasant and cooperative. pt states i am looking forward to this psychiatric placement
[2023-08-17] MEDS: ibuprofen 800 mg tablet PO (22:26)
[2023-08-17 22:57] VITALS: BP 144/80; PULSE 101; RESP 19; O2SAT 97
[2023-08-17 22:58] VITALS: BP 144/80; PULSE 101; RESP 19; O2SAT 97
[2023-08-17 23:12] VITALS: BP 165/89; PULSE 96; RESP 18; TEMP 36.3; O2SAT 98
--- NOTE | 2023-08-17 23:31 | PC.NURSE ---
Pt served with copy of 96 Hour Rights paper work. Pt was very short with this RN. I just need the dates and times read to me. Pt denied further education.
[2023-08-17] MEDS: OLANZapine 5 mg ODT PO (23:42)
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
--- NOTE | 2023-08-18 01:38 | PC.NURSE ---
While DR. Feliz was on the unit he was stopped by this patient and asked him for aspirin. he gave this nurse a verbal order for a one time dose of aspirin 325mg PO.
[2023-08-18] MEDS: aspirin 325 mg Tablet PO (02:10)
--- NOTE | 2023-08-18 02:54 | PC.NURSE ---
This nurse was on other unit and heard yelling coming from NPU. Pt was observed yelling at nurses in nurses station because she's in pain and her aspirin was not available, nurses stated that the medication was still in hold by pharmacy to be verified. Attempted to verbally deescalate pt.
[2023-08-18] MEDS: ibuprofen 600 mg Tablet PO ×2 (05:50→09:08)
[2023-08-18 06:00] VITALS: BP 167/78; PULSE 81; RESP 18; O2SAT 98
--- NOTE | 2023-08-18 08:52 | PC.NURSE ---
Patient refused to let lab draw her blood this morning.
[2023-08-18] MEDS: nicotine 21 mg Patch 1 PATCH TRANSDERMA (09:05)
--- NOTE | 2023-08-18 11:24 | PC.OT ---
MULTIPLE ATTEMPTS MADE FOR OT EVALUATION; WILL ATTEMPT AT LATER TIME.
[2023-08-18 14:00] VITALS: BP 167/97; PULSE 78; RESP 16; TEMP 36.6; O2SAT 98
[2023-08-18] MEDS: OLANZapine 5 mg ODT PO (15:16)
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
--- NOTE | 2023-08-18 20:36 | PC.NURSE ---
pt ref vs resp 16
[2023-08-18] MEDS: paliperidone ER 3 mg Tablet PO (20:39)
[2023-08-18] MEDS: trolamine salicylate 10% 141 gm Cream 1 APPLIC TOPICAL (21:34)
[2023-08-19] MEDS: aspirin 325 mg Tablet 650 MG PO ×2 (04:24→14:37)
[2023-08-19] MEDS: OLANZapine 5 mg ODT PO (06:07)
--- NOTE | 2023-08-19 06:36 | PC.NURSE ---
pt ref resp 20
--- NOTE | 2023-08-19 07:44 | PC.NURSE ---
LIMITED ASSESSMENT R/T PT MOOD, SCANT ANSWERS PROVIDED WHEN ASKED IF SHE WAS SI/HI OR EXPERIENCING AVH. MOOD SEEMS TO BE SOMEWHAT PLEASANT BUT PT HAS GUARDED AFFECT. COFFEE REQUESTED & PROVIDED BY STAFF.
--- NOTE | 2023-08-19 13:05 | P.NPUPN_ITS ---
Subjective NPU Subjective: Patient is a 62-year-old white female with a history of schizoaffective disorder admitted with increased bizarre behavior noted in her current living situation. Patient continued to appear demanding and irritable. She minimized the need to be here but was aggreable to restarting Invega last night with reports of improved sleep. The patient continued to report no recollection of her beh aviors that had led to her hospitalization here. Patient reported no feelings of hopelessness or worthlessness. She reported no depressed mood. She had isolated herself on the milieu. She had stated that she was trying to get help for her pain and reported feeling tired. Mental Status Exam MSE Comments: This is an underweight older white female looking older than her stated age with hospital scrubs on and limited grooming and eye contact. No abnormal movements except for signficant psychomotor agitation. She was minimally cooperative with exam and remained testy. Speech was normal in rate and normal in volume. Mood described as okay and her affect remained extremely irritable and mood incongruent. Her thought process was superficial and at times nonlinear. Thought content: Patient denies suicidal or homicidal ideation, She appeared quite paranoid and hostile while appearing incredulous of the reason for her being asked these questions. She denied auditory or visual hallucinations and did not appear to be responding to internal stimuli. Attention and concentration were poor. Her recent and remote and memory was unreliable but none were formally tested. she was alert and oriented to person place time and situation. She did recognize the instructional writer of this note by name. Insight and judgment are impaired and impulse control is limited versus impaired. Vitals/I&O/Wt Last Vital Signs Temp 98 F 08/18/23 14:00 Pulse 78 08/18/23 14:00 Resp 16 08/18/23 14:00 BP 167/97 08/18/23 14:00 Pulse Ox 98 08/18/23 14:00 O2 Del Method Room Air 08/18/23 14:00 Weight last 48 hrs Weight 40.823 kg Data NPU 08/17/23 20:18 08/17/23 20:18 A&P Assessment and plan (1) Unspecified psychosis: (2) Major depressive disorder, recurrent: (3) PTSD (post-traumatic stress disorder): (4) Delusions: Plan Rossana is a 63-year-old white female with a reported history of PTSD and depression who was admitted to the inpatient unit 6 months ago with paranoia and increase in agitation that appears to be worsening with the patient having stopped taking IM Invega for psychosis. 1. Initiate individual group and milieu therapy. 2. Therapeutic observation 15-minute checks on the unit 3. Engage patient in individual, group and milieu therapy 4. Increase invega from 3 to 6mg at night. 5. Patient denies wanting medication at this time. 21 day hold filed with likely forced medications. Involuntary Hold Information 96 Hour Hold: 96 Hour Involuntary Admission: Yes 96 Hour Hold Ending Date: 08/24/23 96 Hour Hold Ending Time: 19:31 Attestations NPU Medical Necessity Statement*: Inpatient hospitalization is medically necessary and deemed to ?be ?the clinically appropriate intervention ?at this time.? We will monitor/initiate medications and make changes as indicated.? The patient will be in the hospital for over 2 midnights.? The patient?s likely length of stay 5-7 days Coding Level of Care Code Acute Code for Chg Fwd Diagnoses Unspecified psychosis F29 Major depressive disorder, recurrent F33.9 PTSD (post-traumatic stress disorder) F43.10 Delusions F22
[2023-08-19] MEDS: trolamine salicylate 10% 141 gm Cream 1 APPLIC TOPICAL (13:53)
[2023-08-19 14:00] VITALS: BP 150/79; PULSE 81; RESP 15; TEMP 36.6; O2SAT 98
[2023-08-19] MEDS: nicotine 21 mg Patch 1 PATCH TRANSDERMA (14:18)
[2023-08-19 20:26] VITALS: BP 138/72; PULSE 90; RESP 15; TEMP 36.8; O2SAT 94
[2023-08-19] MEDS: paliperidone ER 3 mg Tablet 6 MG PO (20:27)
[2023-08-20] MEDS: nicotine 2 mg Gum BUCCAL ×2 (04:00→09:25)
[2023-08-20] MEDS: aspirin 325 mg Tablet 650 MG PO ×2 (05:46→15:39)
[2023-08-20] MEDS: OLANZapine 5 mg ODT PO ×4 (05:47→20:02)
[2023-08-20 06:00] VITALS: BP 146/83; PULSE 80; RESP 18; TEMP 36.6; O2SAT 100
[2023-08-20] MEDS: trolamine salicylate 10% 141 gm Cream 1 APPLIC TOPICAL (13:57)
[2023-08-20 14:00] VITALS: BP 174/84; PULSE 84; RESP 15; TEMP 36.8; O2SAT 99
[2023-08-20] MEDS: nicotine 21 mg Patch 1 PATCH TRANSDERMA (14:10)
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
[2023-08-20 20:01] VITALS: BP 155/85; PULSE 104; RESP 16; TEMP 36.8; O2SAT 94
[2023-08-20] MEDS: paliperidone ER 3 mg Tablet 6 MG PO (20:03)
[2023-08-21] MEDS: aspirin 325 mg Tablet 650 MG PO ×2 (02:06→15:01)
--- NOTE | 2023-08-21 06:39 | PC.NURSE ---
pt resting was up off nad on all night resp 16
[2023-08-21] MEDS: trolamine salicylate 10% 141 gm Cream 1 APPLIC TOPICAL (09:11)
[2023-08-21] MEDS: nicotine 21 mg Patch 1 PATCH TRANSDERMA (09:11)
--- NOTE | 2023-08-21 11:59 | W.PM.NPUPNS ---
Subjective NPU Subjective: Patient is a 63-year-old white female with a history of schizoaffective disorder with a history of psychosis admitted with increased bizarre behavior and violence toward others while residing in her current living situation. Patient had continued to appear demanding and rude on the unit. She had remained somewhat belligerent towards staff at times while at other times appearing calm and collected. 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 She had reported feeling as if she were being targeted by the police in 2 different cities, 1 from her previous stay in March and the other from the most recent place of living the past week. She had no acts of aggression on the unit. She was redirectable. She had reported having frequent headaches requesting aspirin 3 times a day. Mental Status Exam MSE Comments: This is an underweight older white female looking older than her stated age with hospital scrubs on and limited grooming and eye contact. No abnormal movements Appreciated other than mild psychomotor agitation. She was cooperative with exam and the examination and remained testy. Speech was normal in rate and normal in volume. Mood described as okay and her affect remained extremely irritable and mood incongruent. Her thought process was superficial and at times nonlinear. Thought content: Patient denies suicidal or homicidal ideation, She appeared quite paranoid and hostile while appearing incredulous of the reason for her being asked these questions. She denied auditory or visual hallucinations and did not appear to be responding to internal stimuli. Attention and concentration were poor. Her recent and remote and memory remained unreliable. She was alert and oriented to person place time and situation. Insight and judgment are impaired and impulse control is limited versus impaired. Vitals/I&O/Wt Last Vital Signs Temp 98.2 F 08/20/23 20:01 Pulse 104 H 08/20/23 20:01 Resp 16 08/20/23 20:01 BP 155/85 08/20/23 20:01 Pulse Ox 94 08/20/23 20:01 O2 Del Method Room Air 08/20/23 20:01 Data NPU 08/17/23 20:18 08/17/23 20:18 A&P Assessment and plan (1) Unspecified psychosis: (2) Major depressive disorder, recurrent: (3) PTSD (post-traumatic stress disorder): (4) Delusions: Plan Rossana is a 63-year-old white female with a reported history of PTSD and depression who was admitted to the inpatient unit 6 months ago with paranoia and increase in agitation that appears to be worsening with the patient having stopped taking IM Invega for psychosis. 1. Continue individual, group and milieu therapy. 2. Therapeutic observation 15-minute checks on the unit 3. Engage patient in individual, group and milieu therapy 4. Continue invega at 6mg at night. 5. Patient denies wanting medication at this time. 21 day hold filed with likely forced medications including restarting invega sustenna. Involuntary Hold Information 96 Hour Hold: 96 Hour Involuntary Admission: Yes 96 Hour Hold Ending Date: 08/24/23 96 Hour Hold Ending Time: 19:31 Attestations NPU Medical Necessity Statement*: Inpatient hospitalization is medically necessary and deemed to ?be ?the clinically appropriate intervention ?at this time.? We will monitor/initiate medications and make changes as indicated.? ? The patient?s likely length of stay is 5-7 days Coding Level of Care Code Acute Code for Chg Fwd Diagnoses Unspecified psychosis F29 Major depressive disorder, recurrent F33.9 PTSD (post-traumatic stress disorder) F43.10 Delusions F22
[2023-08-21 14:00] VITALS: BP 177/95; PULSE 98; RESP 16; TEMP 36.6; O2SAT 96
[2023-08-21] MEDS: OLANZapine 5 mg ODT PO (15:01)
[2023-08-21] MEDS: paliperidone ER 3 mg Tablet 6 MG PO (20:26)
[2023-08-21] MEDS: nicotine 2 mg Gum BUCCAL (20:33)
--- NOTE | 2023-08-21 22:11 | PC.NURSE ---
Asked pt to obtain vital signs. Pt stated No I don't want you to take them.
[2023-08-22] MEDS: aspirin 325 mg Tablet 650 MG PO ×2 (04:49→15:18)
[2023-08-22] MEDS: OLANZapine 5 mg ODT PO ×3 (05:55→19:23)
[2023-08-22 06:00] VITALS: BP 175/99; PULSE 83; RESP 18; TEMP 36.5; O2SAT 98
[2023-08-22] MEDS: nicotine 2 mg Gum BUCCAL (06:24)
[2023-08-22] MEDS: nicotine 21 mg Patch 1 PATCH TRANSDERMA (11:20)
[2023-08-22 14:00] VITALS: BP 161/91; PULSE 80; RESP 18; TEMP 36.7; O2SAT 99
--- NOTE | 2023-08-22 18:29 | W.PM.NPUPNS ---
Subjective NPU Subjective: Patient is a 63-year-old white female with a history of schizoaffective disorder with a history of psychosis admitted with increased bizarre behavior and violence toward others while residing in her current living situation. The patient had been compliant on the unit. She reported increased appetite. She appeared less hostile but remained demanding on the unit. She reported no side effects from her Invega. She had admitted that she had no desire to take these medications outside of here. She reported improving energy. She denied any depression at this time. She had reported having significant migraine headaches. She reported that she simply wished to be left alone in her home environment. Mental Status Exam MSE Comments: This is an underweight older white female looking older than her stated age with hospital scrubs on and limited grooming and eye contact. No abnormal movements Appreciated other than mild psychomotor agitation. She was cooperative with exam and in no acute distress. Speech was normal in rate and normal in volume. Mood described as allright and her affect was less irritable. Her thought process was superficial and at times nonlinear. Thought content: Patient denies suicidal or homicidal ideation, She was less irritable and more thoughtful today. She denied auditory or visual hallucinations and did not appear to be responding to internal stimuli. Attention and concentration were improving. Her recent and remote and memory remained unreliable. She was alert and oriented to person place time and situation. Insight was poor and judgment is poor and impulse control is limited versus impaired. Vitals/I&O/Wt Last Vital Signs Temp 98.1 F 08/22/23 14:00 Pulse 80 08/22/23 14:00 Resp 18 08/22/23 14:00 BP 161/91 08/22/23 14:00 Pulse Ox 99 08/22/23 14:00 O2 Del Method Room Air 08/22/23 06:00 Weight last 48 hrs Weight 49.158 kg Data NPU 08/17/23 20:18 08/17/23 20:18 A&P Assessment and plan (1) Unspecified psychosis: (2) Major depressive disorder, recurrent: (3) PTSD (post-traumatic stress disorder): (4) Delusions: Plan Rossana is a 63-year-old white female with a reported history of PTSD and depression who was admitted to the inpatient unit 6 months ago with paranoia and increase in agitation that appears to be worsening with the patient having stopped taking IM Invega for psychosis. 1. Continue individual, group and milieu therapy. 2. Therapeutic observation 15-minute checks on the unit 3. Engage patient in individual, group and milieu therapy 4. Continue invega at 6mg at night. 5. Patient denies wanting medication at this time. 21 day hold filed with likely forced medications including restarting invega sustenna. Involuntary Hold Information 96 Hour Hold: 96 Hour Involuntary Admission: Yes 96 Hour Hold Ending Date: 08/24/23 96 Hour Hold Ending Time: 19:31 Attestations NPU Medical Necessity Statement*: Inpatient hospitalization is medically necessary and deemed to ?be ?the clinically appropriate intervention ?at this time.? We will monitor/initiate medications and make changes as indicated.? ? The patient?s likely length of stay is 2-3 days Coding Level of Care Code Acute Code for Chg Fwd Diagnoses Unspecified psychosis F29 Major depressive disorder, recurrent F33.9 PTSD (post-traumatic stress disorder) F43.10 Delusions F22
[2023-08-22] MEDS: paliperidone ER 3 mg Tablet 6 MG PO (19:23)
[2023-08-22] MEDS: trolamine salicylate 10% 141 gm Cream 1 APPLIC TOPICAL (19:24)
--- NOTE | 2023-08-22 20:02 | PC.NURSE ---
Asked to obtain vital signs. pt refused.
[2023-08-22 20:10] VITALS: BP 179/102; PULSE 92; RESP 18; TEMP 36.8; O2SAT 96
[2023-08-23] MEDS: aspirin 325 mg Tablet 650 MG PO ×2 (02:10→16:45)
[2023-08-23 06:00] VITALS: BP 146/78; PULSE 87; RESP 16; O2SAT 97
[2023-08-23] MEDS: trolamine salicylate 10% 141 gm Cream 1 APPLIC TOPICAL ×2 (06:01→11:28)
[2023-08-23] MEDS: OLANZapine 5 mg ODT PO ×2 (06:01→16:48)
[2023-08-23] MEDS: prenatal vitamin Capsule 1 CAP PO (08:54)
[2023-08-23] MEDS: nicotine 21 mg Patch 1 PATCH TRANSDERMA (11:30)
[2023-08-23 14:00] VITALS: BP 199/85; PULSE 95; RESP 15; TEMP 36.6; O2SAT 100
--- NOTE | 2023-08-23 14:54 | P.NPUPN_ITS ---
Subjective NPU Subjective: Patient is a 63-year-old white female with a history of schizoaffective disorder with a history of psychosis admitted with increased bizarre behavior. The patient was more redirectable. The patient was compliant and continue to take her Invega oral without difficulty. She had been less irritable and reported having no thoughts of hurting herself or others. She stated that she simply wi shed to go home when she left here. She was able to engage in self-care. She had been somewhat demanding on the unit but was not verbally abusive to staff or peers. She reported no side effects from her Invega at this time. Mental Status Exam MSE Comments: This is an underweight older white female looking older than her stated age with hospital scrubs with improved grooming and fair eye contact. No abnormal involuntary motor movements appreciated. She was cooperative with exam and in no acute distress. Speech was normal in rate, rhythm and normal in volume. Mood described as better. Her affect was less irritable. Her thought process was linear and logical and goal directed. Thought content: Patient denies suicidal or homicidal ideation. She denied auditory or visual hallucinations and did not appear to be responding to internal stimuli. Attention and concentration were improving. Her recent and remote and memory remained unreliable. She was alert and oriented to person,place, time and situation. Insight was improving and judgment is fair and impulse control is improving. Vitals/I&O/Wt Last Vital Signs Temp 98.2 F 08/22/23 20:10 Pulse 87 08/23/23 06:00 Resp 16 08/23/23 06:00 BP 146/78 08/23/23 06:00 Pulse Ox 97 08/23/23 06:00 O2 Del Method Room Air 08/22/23 06:00 Weight last 48 hrs Weight 49.158 kg Data NPU 08/17/23 20:18 08/17/23 20:18 A&P Assessment and plan (1) Unspecified psychosis: (2) Major depressive disorder, recurrent: (3) PTSD (post-traumatic stress disorder): (4) Delusions: Plan Rossana is a 63-year-old white female with a reported history of PTSD and depression who was admitted to the inpatient unit 6 months ago with paranoia and increase in agitation that appears to be worsening with the patient having stopped taking IM Invega for psychosis. 1. Continue individual, group and milieu therapy. 2. Therapeutic observation 15-minute checks on the unit 3. Engage patient in individual, group and milieu therapy 4. Continue invega at 6mg at night. 5. Will not pursue 21 day hold with likely discharge in 1-2 days. Involuntary Hold Information 96 Hour Hold: 96 Hour Involuntary Admission: Yes 96 Hour Hold Ending Date: 08/24/23 96 Hour Hold Ending Time: 19:31 Attestations NPU Medical Necessity Statement*: Inpatient hospitalization is medically necessary and deemed to ?be ?the clinically appropriate intervention ?at this time.? We will monitor/initiate medications and make changes as indicated.? ? The patient?s likely length of stay is 1-2 days Coding Level of Care Code Acute Code for Chg Fwd Diagnoses Unspecified psychosis F29 Major depressive disorder, recurrent F33.9 PTSD (post-traumatic stress disorder) F43.10 Delusions F22
[2023-08-23] MEDS: paliperidone ER 3 mg Tablet 6 MG PO (20:03)
[2023-08-23 20:28] VITALS: BP 183/85; PULSE 85; RESP 17; TEMP 36.7; O2SAT 98
[2023-08-24] MEDS: aspirin 325 mg Tablet 650 MG PO (04:49)
[2023-08-24] MEDS: prenatal vitamin Capsule 1 CAP PO (08:15)
--- NOTE | 2023-08-24 08:58 | PC.NURSE ---
limited shift assessment done, r/t patient attitude towards staff, verbally aggressive & gets agitated easily, refusing to answer questions asked.
[2023-08-24 11:34] VITALS: BP 183/85; PULSE 85; RESP 17; TEMP 36.7; O2SAT 98
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
== END 2023-08-24 14:02 | disposition home or self-care (01) | DRG 885 ==
LOC: ER 20:08 → NP 22:55
PROVIDERS: Emergency Medicine; Admitting Provider Psychiatry & Neurology Psychiatry; Emergency Provider Internal Medicine; Visit Provider Psychiatry & Neurology Psychiatry
DX: F29 Unspecified psychosis not due to a substance or known physiological condition (principal); F33.9 Major depressive disorder, recurrent, unspecified; F43.10 Post-traumatic stress disorder, unspecified; F17.210 Nicotine dependence, cigarettes, uncomplicated; F22 Delusional disorders; I10 Essential (primary) hypertension; E07.9 Disorder of thyroid, unspecified; Z91.410 Personal history of adult physical and sexual abuse; Z62.810 Personal history of physical and sexual abuse in childhood
CPT/HCPCS: 36415; 80053; 80306; 80307; 81003; 81025; 85025; 97150; 97165; 99285

== ENCOUNTER → 2023-11-24 15:14 | Outpatient (BNVA) | payer MEDICAID, SELFPAY | PROVIDERS: Visit Provider Nurse Practitioner Family | DX: R39.9 Unspecified symptoms and signs involving the genitourinary system (principal) | CPT/HCPCS: 81000 ==

== ENCOUNTER 2023-12-07 23:08 | Emergency (ER) | payer MEDICAID, SELFPAY ==
[2023-12-07 23:08] VITALS: BP 125/80; PULSE 105; RESP 16; TEMP 36.6; O2SAT 98; BMI 17.5
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
[2023-12-07] MEDS: ketorolac 10 mg Tablet PO (23:51)
== END 2023-12-08 01:14 | disposition home or self-care (01) ==
PROVIDERS: Emergency Provider Physician Assistant
DX: S05.12XA Contusion of eyeball and orbital tissues, left eye, initial encounter (principal); Y04.2XXA Assault by strike against or bumped into by another person, initial encounter; Y92.830 Public park as the place of occurrence of the external cause; Z59.02 Unsheltered homelessness; Z72.0 Tobacco use
CPT/HCPCS: 70450; 73501; 73562; 73610; 99284

== ENCOUNTER 2023-12-16 20:50 | Emergency (ER) | payer MEDICAID, SELFPAY ==
[2023-12-16 21:02] VITALS: BP 155/80; PULSE 99; RESP 16; TEMP 36.6; O2SAT 98
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
[2023-12-16] MEDS: HYDROcodone-acetaminophen 5-325 mg Tablet 1 TAB PO (22:46)
--- NOTE | 2023-12-16 22:49 | PC.NURSE ---
Pt. states that she would like a sandwich, coffee, and water. Pt. has been given food and water and hydrocodone for pain. Provider waiting to fix wound when patient is ready.
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
== END 2023-12-17 00:05 | disposition left against medical advice (07) ==
PROVIDERS: Emergency Provider Nurse Practitioner Family
DX: S81.811A Laceration without foreign body, right lower leg, initial encounter (principal); Z72.0 Tobacco use; X99.8XXA Assault by other sharp object, initial encounter; Z53.29 Procedure and treatment not carried out because of patient's decision for other reasons
CPT/HCPCS: 99283

== ENCOUNTER 2023-12-17 20:24 | Emergency (ER) | payer MEDICAID, SELFPAY ==
[2023-12-17 20:31] VITALS: BP 124/65; PULSE 92; RESP 18; TEMP 36.7; O2SAT 97; BMI 16.9
--- NOTE | 2023-12-17 21:18 | XRR_ITS ---
PROCEDURE INFORMATION: Exam: XR Chest Exam date and time: 12/17/2023 9:36 PM Age: 63 years old Clinical indication: Chest wall pain; Additional info: Chest pain TECHNIQUE: Imaging protocol: Radiologic exam of the chest. Views: 1 view. COMPARISON: CR XR shoulder RT min 2V* [id number] 11/13/2022 9:06 AM FINDINGS: Lungs: Emphysematous changes. Pleural spaces: Unremarkable. No pleural effusion. No pneumothorax. Heart/Mediastinum: Unremarkable. No cardiomegaly. Bones/joints: Unremarkable. XR/XR chest 1V portable [id number] IMPRESSION: Emphysematous changes, negative for infiltrate.
--- NOTE | 2023-12-17 21:18 | ECG_ITS ---
[facility] Test Date: 2023-12-17 Pat Name: Rossana Heart Department: Room: Gender: Female Field Education Director: : 1960 Requested By: Mich Alfaro Order Number: [id number] Ju MD: Jesus Mac M.D. Measurements Intervals [place] Rate: 92 P: 63 MA: 113 QRS: 83 QRSD: 82 T: 74 QT: 335 QTc: 415 Interpretive Statements SINUS RHYTHM WITH SHORT MA INTERVAL No previous ECG available for comparison Electronically Signed On 12-18-2023 15:53:36 CDT by Jesus Mac M.D. [id number]
[2023-12-17 21:49] LABS: Basophils # 0.1 10^3/uL (0.0-0.1); Basophils % 0.8 %; Eosinophils # 0.1 10^3/uL (0.0-0.8); Eosinophils % 1.4 %; Hematocrit 37.6 % (36-47); Lymphocytes % 19.1 %; Mean Corpuscular HGB Conc 31.6 g/dL (30-55); Mean Corpuscular Hemoglobin 27.4 pg (27-33); Mean Corpuscular Volume 86.6 fl (85-98); Mean Platelet Volume 9.1 fL (7.4-10.4); Monocytes # 1.1 10^3/uL (0.2-0.9); Monocytes % 10.4 %; Neutrophils # 7.06 10^3/uL (1.8-7.7); Nucleated Red Blood Cells % 0 %; Platelet Count 288 10^3/cmm (157-399); Red Blood Count 4.34 10^6/uL (3.85-5.65); Red Cell Distribution Width 18.1 % (12.1-15.1); White Blood Count 10.37 10^3/uL (3.29-11.43)
[2023-12-17 22:06] LABS: Blood Urea Nitrogen 22 mg/dL (8-23); Calcium 9.3 mg/dL (8.5-10.5); Carbon Dioxide 28 mmol/L (22-29); Chloride 103 mmol/L (98-107); Creatinine Clr Calc Pharmacy 61.6421; Glomerular Filtration Rate 85.1 mL/min (90-130); Glucose 98 mg/dL (65-115); Osmolality Calculated 293 mOsm/kg (285-295); Sodium 140 mmol/L (136-145); Troponin(5th) Baseline 10 ng/L (0-10)
--- NOTE | 2023-12-17 23:18 | ECG_ITS ---
[facility] Test Date: 2023-12-18 Pat Name: Rossana Heart Department: Room: Gender: Female Support Analyst: : 1960 Requested By: Mich Alfaro Order Number: [id number] Ju MD: Jesus Mac M.D. Measurements Intervals [place] Rate: 86 P: 54 MO: 111 QRS: 82 QRSD: 86 T: 79 QT: 348 QTc: 418 Interpretive Statements SINUS RHYTHM WITH SHORT MO INTERVAL POSSIBLE RIGHT VENTRICULAR CONDUCTION DELAY [RSR (QR) IN V1/V2] Compared to ECG 12/17/2023 20:32:23 No significant changes Electronically Signed On 12-18-2023 15:58:18 CDT by Jesus Mac M.D. [id number]
[2023-12-17 23:44] LABS: Troponin 5 2HR 10.38 ng/L (0-10); Troponin 5 2HR Delta 0.38 ABS# (0-10)
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
[2023-12-18 02:24] VITALS: BP 118/68; PULSE 92; RESP 16; O2SAT 93
== END 2023-12-18 02:26 | disposition home or self-care (01) ==
PROVIDERS: Emergency Medicine; Emergency Provider Internal Medicine
DX: R07.89 Other chest pain (principal); Z72.0 Tobacco use
CPT/HCPCS: 36415; 71045; 80048; 84484; 85025; 93005; 99285